=== PATIENT | male | born 1960 | race Caucasian/White ===

== ENCOUNTER 2017-02-08 14:10 | Emergency (ER) | payer MEDICARE, MEDICAID ==
[~2017-02-08] VITALS: Ht 188 cm; Wt 81.6 kg
[~2017-02-08 14:10] MED LIST: AUGMENTIN1 TA3 PO; DILANTIN 100MG100 MG PO; ULTRAM50 MG PO; VOLTAREN75 MG PO; ZITHROMAX Z PA250 MG PO
[2017-02-08] MEDS ORDERED: GABAPENTIN 400400 MG PO (14:25)
[2017-02-08] MEDS ORDERED: TRAMADOL 50MG T50 MG PO (14:26)
[2017-02-08 14:53] LABS: LYMPH % 30.7 % (10-50)
[2017-02-08 14:54] LABS: HEMOGLOBIN 14.1 g/dL (14.1-18.0)
--- NOTE | 2017-02-08 15:32 | Emergency Room Report ---
History of Present Illness Time Seen by MD Echavarria Presenting Problem in Triage Pt arrived:Walked Presenting Problem:PATIENT HAS BEEN THROWING UP SINCE YESTERDAY. STATES HE HAS BEEN OUT WORKING IN [place]. ABDOMEN SORE "FROM THROWING UP." Onset of symptoms date/time:02/0704/14/800 or onset unknown for: Treatment Prior to Arrival: [employer]OR Provided by: Sepsis Risk Assessment: Temp: 98.4 B/P: 128/76 MAP: 92 Pulse: 54 Resp: 20 Recent fever? N Clinical Suspician of Infection? N Mental Status: 1 - Regular (Normal Baseline) Sepsis Risk:Low Sepsis Risk Have you (or family members/close friends) recently traveled outside the [place]? N If Yes, where/when: Have you had exposure to infectious disease within the past month? TB? Other? Specify: Comment The patient complains of vomiting and abdominal pain since yesterday. He says he has been working and tobacco and thought it might be tobacco poisoning. However, he says that mostly he has been wearing gloves, not much contact with bare skin. He feels like his abdomen is sore from vomiting. One episode of diarrhea last night without blood. No fever. No chest pain. ALLERGIES Coded Allergies: No Known Drug Allergies (03/29/15) Home Medications Active Scripts Phenytoin Sodium (Dilantin 100MG CAP) 100 MG PO TID #90 CAP Prov: 08/01/14 Reported Medications GABAPENTIN (Gabapentin) 400 MG PO TID Tramadol Hcl (Tramadol 50MG) 50 MG PO TID History Medical History General CAD? No Angina: Yes ND: No Hypertension? No Hyperlipidemia? No CHF? No DVT? No PE? No COPD? No Asthma? No Anemia? No GERD? No Gastric ulcers? No GI Bleed? No Hernia? No Thyroid Problems? No Hypothyroidism? No CVA? Yes Seizures? Yes Diabetes? No Insulin Dependent: No Insulin Pump: No Home FSBS? No Renal Insuffiency? No End Stage Renal Disease? No UTI? No Stones? No BPH? No GB Disease: Yes Nephritic Syndrome? No Asplenia? No Hepatitis? No Sickle Cell Disease? No Arthritis? No Migraines? No Cataracts? No Glaucoma? No MRSA? No HIV? No TB? No Anxiety? No Depression? No Cancer? No More? No Immunization Hx DT/Tetanus 1-4 YRS Surgical Hx Previous Surgery?Y CHOLECYSTECTOMY Family History Family Hx Diabetes No CAD Yes Hypertension Yes Hyperlipidemia Yes Cancer No TB No Social History Smoking Hx Smoker: Current Every Day Smoker Tobacco: Yes Type Cigarettes Packs/day 1 1/2 - 2 Packs Alcohol Alcohol: No Review of Systems All Other Systems Reviewed and Negative Constitutional denies fever Cardiovascular denies chest pain Gastrointestinal abdominal pain, diarrhea, vomiting Physical Exam Vital Signs Vital Signs Date Time Temp Pulse Resp B/P Pulse O2 O2 Flow FiO2 Ox Delivery Rate 02/08 1624 98.5 60 20 128/77 100 02/08 1516 54 20 128/76 100 02/08 1419 98.4 63 20 126/75 100 General Appearance no apparent distress Eye Exam - bilateral eye normal exam, bilateral eye PERRL, bilateral eye EOMI Ear, Nose, Throat hearing grossly normal, normal ENT inspection Neck normal inspection, non-tender, supple, full range of motion Respiratory Status Yes: trachea midline, chest symmetrical, non tender chest. No: respiratory distress. Lung Sounds bilateral: normal breath sounds, lungs clear. Cardiovascular normal exam, regular rate/rhythm, no peripheral edema, no gallop, no JVD, no murmur, no rub, normal peripheral pulses Peripheral Pulses Pulses normal Yes Gastrointestinal normal bowel sounds, soft, no organomegaly, lower abdominal tenderness, mostly in the RIGHT lower quadrant Extremities non-tender, normal range of motion, normal inspection Neurologic alert, normal exam, oriented x 3 Mental status normal mood/affect Skin intact, normal color, warm/dry Medical Decision Making LABS/Meds/Orders Pt receiving controlled substance in ED? No Results/Orders Laboratory Tests 02/08/17 1442: Creatine Kinase 462 H, CK-MB (CK-2) Rel Index 1.5, CK and CKMB Interp 7.1 H, Troponin I < 0.02 02/08/17 1442: Sodium 139, Potassium 3.9, Chloride 105, Carbon Dioxide 30, BUN 15, Creatinine 1.0, Estimated Creat Clear 94, Estimated GFR (MDRD) 77, Glucose 100, Calcium 9.0 , Total Bilirubin 0.9, AST 40 H, ALT 26, Alkaline Phosphatase 113, Total Protein 7.7, Albumin 3.7, Globulin 4.0 H, Albumin/Globulin Ratio 0.9 L, Amylase 46, Lipase 116, WBC 9.9, RBC 4.72, Hgb 14.1, Hct 41.7 L, MCV 88.5, RDW 13.0, Plt Count 250, MPV 8.4, Gran % 63.2, Gran # 6.3, Lymphocytes % 30.7, Monocytes % 5.0, Eosinophils % 0.7, Basophils % 0.4, Lymphocytes # 3.0, Monocytes # 0.5, Eosinophils # 0.1, Basophils # 0.0, PUBS MCHC 33.9, MCH 29.9 Current Medication Orders Sig/Karissa Start time Last Medication Dose Route Stop Time Status Admin Iopamidol 75 ML ONCE ONE 02/08 1615 DC 02/08 IV 02/08 1616 1606 Sodium Chloride 10 ML PRN PRN 02/08 1615 DCD 02/08 IV 02/08 1735 1606 Sodium Chloride 1,000 ML .STK-MED ONE 02/08 1444 DC IV Sodium Chloride 10 ML PRN PRN 02/08 1430 DCD IV 02/09 1427 Sodium Chloride 1,000 ML .Q1H1M 02/08 1430 DC 02/08 IV 02/08 1530 1445 Sodium Chloride 10 ML PRN PRN 02/08 1430 DCD IV 02/09 1429 Orders Procedure Date/time Status DIET-NOTHING BY MOUTH 02/[address] ABD/PELVIS REQ 02/08 1536 Complete ELECTROCARDIOGRAM REQUEST 02/08 1437 Active CARDIAC ENZYMES 02/08 1437 Complete IV SALINE LOCK 02/08 1430 Active LIPASE 02/08 1430 Complete CBC WITH AUTO DIFF 02/08 1430 Complete CHEM 12 PROFILE 02/08 1430 Complete AMYLASE 02/08 1430 Complete 12 LEAD EKG-[facility] (INITIAL) 02/08 UNK Active CM/EKG CM/EKG Comments EKG interpreted by Zev Leblanc MD: Rhythm: sinus bradycardia Rate: 53 Hollins: normal Ectopy: none Conduction: normal ST Segment Changes: none T Wave Changes: none Q Waves: none No evidence of acute ischemia or injury Baseline artifact present, but I consider the EKG adequate for accurate interpretation. Departure Departure Disposition DC Home or Self Care(routine) Clinical Impression Primary Impression: Tobacco poisoning Qualifiers: Encounter type: initial encounter Injury intent: accidental or unintentional Qualified Code: T65.291A - Toxic effect of other tobacco and nicotine, accidental (unintentional), initial encounter Condition STABLE Patient Instructions DI for Vomiting -- Adult Additional Instructions Additional instructions for ABDOMINAL PAIN: Return immediately if worsening abdominal pain, vomiting, shortness of breath, fever, vomiting of blood or abdominal distention. Prescriptions Current Visit Scripts Ondansetron (Zofran 4MG Odt) 4 MG PO Q8HP PRN NAUSEA AND VOMITING #10 ODT ED Critical Care Critical Care No at 5500
--- NOTE | 2017-02-08 16:15 | RADIOLOGY REPORT PS360 ---
CT ABD PELVIS W/ CONTRAST CLINICAL INDICATION: ABDOMINAL PAIN ORDERING PHYSICIAN: Zev Leblanc MD PATIENT AGE: 56 years COMPARISON: None TECHNIQUE: Axial images obtained with sagittal and coronal reformats. PROCEDURE: Oral Contrast: None IV Contrast: 75 mL of Isovue-[id number]. FINDINGS: No acute finding in the lung bases. There are at least 2 isodense lesions of the liver the largest in the right hepatic lobe at 9 mm nonspecific too small to categorize. There has been prior cholecystectomy. No biliary dilatation. Spleen, adrenal glands, and pancreas are unremarkable. No hydronephrosis or ureteral calculi. Nonobstructing 3 mm stone is present in the upper pole the left kidney. No intestinal obstruction or free air. Unremarkable appendix. No evidence of diverticulitis. Central coarse prostate calcifications are noted. Mild distention noted of the urinary bladder. No evidence of aneurysm or adenopathy. No acute bony anomalies. IMPRESSION: No acute intra-abdominal or pelvic pathology apparent Nonacute findings as described above including nonspecific isodense lesions of the liver and nonobstructing 3 mm left renal stone
[2017-02-08] MEDS ORDERED: ZOFRAN ODT4 MG PO (16:19)
[2017-02-08 16:24] VITALS: BP 128/77
--- OUTSIDE RECORDS SUMMARY | 2017-02-09 20:28 | External Medical Summary Rpt | CCD ---
Author Author , DEO Organization DEO Address Unknown Phone Care Team Providers Care Form Worker Name Role Phone JUWAN PEDRAZA, Unavailable Unavailable RemiP.S.CMichael, JUWAN PEDRAZA M.D.P.S.CMichael LOU ALL, LOU ALL Unavailable Unavailable BUTROS ANETTE, BUTROS Unavailable Unavailable ANETTE BUTROS, REZKALLA, Unavailable Unavailable BUTROS, REZKALLA [facility], Unavailable Unavailable [facility] LYDIA CHELSY, LYDIA CHELSY Unavailable Unavailable [facility], Unavailable Unavailable [facility] Unavailable Unavailable [facility], [facility] DAHBAR ANASTACIO, DAHBAR Unavailable Unavailable ANASTACIO DAHBAR, MAZEN, Unavailable Unavailable DAHBAR, MAZEN ERNESTINA THA, ERNESTINA Unavailable Unavailable THA FINCHUM ELL, FINCHUM Unavailable Unavailable ELL LORI ENRIQUE, LORI Unavailable Unavailable ENRIQUE GILBERT FESTUS, GILBERT Unavailable Unavailable FESTUS PASTORA RHO, PASTORA Unavailable Unavailable RHO JR OTONIEL, JAMES Unavailable Unavailable B, JR FREDERICK WALLACE B [place] [facility]ILY[facility], Unavailable Unavailable HO AILYN [facility] Unavailable Unavailable INC, [facility] HERDER LUIZA, HERDER Unavailable Unavailable LUIZA [facility], Unavailable Unavailable [facility] ASHLEY III BARBIE, Unavailable Unavailable ASHLEY III BARBIE [facility] Un[facility] Un[facility], [facility] Unavailable Unavailable [facility] & Unavailable Unavailable [facility] [place] [facility] NANCY SHI MD Unavailable Unavailable PS, NANCY SHI MD PS CAROLIN DURAN Unavailable Unavailable WILLIS Larson MD, Unavailable Unavailable Veronica Larson MD [facility] Unavailable Unavailable SERVICES, [facility] Unavailable [facility] [place] KAUSHAL GRE, KAUSHAL GRE Unavailable Unavailable [facility] CASTRO [facility], CASTRO Unavailable Unavailable [facility], Unavailable [facility]available [facility] CHASE PUN, Unavailable Unavailable [facility] BHARTI CHR, BHARTI CHR Unavailable Unavailable [facility] Unavailable Unavailable [facility], [facility] Unavailable Unavailable [facility], [facility] Unavailable Unavailable [facility], [facility] Unavailable Unavailable [place], [facility] GASTON RAY, GASTON Unavailable Unavailable [facility] Unavailable Unavailable CENTER, [facility] GUMARO LUIZA, Unavailable Unavailable [facility] LUIZA JOHAN JUNG, JOHAN Unavailable Unavailable JUNG Purpose Continuity of Care Document - 06-23-2007 through 2016 Problems Code Diagnosis DOS Provider Status E860 DEHYDRATION 01-11-2016 [facility] N19 UNSPECIFIED 01-11-2016 [facility] KIDNEY N EMERGENCY FAILURE PHYS R0602 SHORTNESS 01-11-2016 [facility] OF BREATH RADIOLOGY R531 WEAKNESS 01-11-2016 [facility] [place] [facility] [id number] OTHER 01-11-2016 [facility] SPECIFIED N EMERGENCY INJURIES PHYS HEAD INITIAL ENCOUNTER [id number] PAIN IN 12-09-2015 [facility] [place] RIGHT [facility]EE RAD[facility] R569 UNSPECIFIED 03-21-2015 [facility] [id number] STRAIN 03-21-2015 [facility] MUSCLE FASC PHYSICIANS & TENDON GROUP NECK LEVL INIT ENC Z720 TOBACCO USE 03-21-2015 [facility] R042 HEMOPTYSIS 03-11-2015 [facility] 7295 PAIN IN 10-26-2014 [facility] [place] [facility] TISSUES OF LIMB 7224 DEGENERATIO 05-31-2014 [facility] CERVICAL [place] INTERVERTEB RAL DISC 56058 CORTICAL 08-28-2013 NANCY [place]cer [place] [address] UNSPECIFIED 08-28-2013 NANCY Mercer [place] [address] POSTERIOR 08-13-2013 NANCY Mercer SUBCAPSULAR [facility] POLAR PS SENILE CATARACT 16948 NUCLEAR 08-13-2013 NANCY Mercer SCLEROSIS [facility] [place] PS 305.00 305.00 05-22-2013 Dev ALCOHOL [facility] 305.1 305.1 05-22-2013 Dev TOBACCO USE [facility] 413.9 413.9 05-22-2013 Dev ANGINA [facility] PECTORIS [facility] NEC/NOS 780.39 780.39 05-22-2013 Dev OTHER [facility] [address] OTHER 12-31-2012 [facility] [place] 7211 CERVICAL 12-31-2012 [facility] WITH AND [facility] MYELOPATHY 93410 INTERVERT 12-31-2012 [facility] CERV DISC PAIN CARE D/O AND [facility] W/MYELOPATH Y CERV REGION 8470 NECK SPRAIN 12-31-2012 [facility] AND STRAIN PAIN CARE AND [facility] V5869 LONG-TERM 12-31-2012 [facility] (CURRENT) LABORATORIE USE OF S OF [place] OTHER MEDICATIONS V7109 OBSERVATION 12-31-2012 [facility] OF OTHER LABORATORIE SUSPECTED S OF [place] MENTAL CONDITION 7230 SPINAL 10-06-2012 [facility] STENOSIS IN PAIN CARE CERVICAL AND [facility] REGION 7234 BRACHIAL 10-06-2012 [facility] NEURITIS OR PAIN CARE AND [facility] RADICULITIS NOS 7238 OTHER 10-06-2012 [facility] SYNDROMES PAIN CARE AFFECTING AND [place] CERVICAL REGION 7804 DIZZINESS 10-06-2012 [facility] AND PAIN CARE GIDDINESS AND [facility] E9352 OTH 10-06-2012 [facility] OPIATES&REL [facility]ARE NARCOTICS AND [place] CAUS ADVRS EFF [place] USE 3384 CHRONIC 07-14-2012 [facility] SYNDROME AND [facility] 68881 SPINAL 07-14-2012 [facility] STENOSIS [facility] CARE UNSPEC AND [place] REGION OTH THAN CERVICAL 96569 UNSPECIFIED 05-06-2012 [facility] PAIN CARE ARTHROPATHY AND [facility] OTHER SPECIFIED SITES 7213 LUMBOSACRAL 05-06-2012 [facility] PAIN CARE SPONDYLOSIS AND [place] WITHOUT MYELOPATHY 03943 DEGEN 05-06-2012 [facility] LUMBAR/LUMB PAIN CARE OSACRAL AND [place] INTERVERTEB RAL DISC 22810 SPINAL STEN 05-06-2012 [facility] LUMB REG [facility]ARE W/O AND [facility] NEUROGENIC CLAUDICATIO N 27052 KYPHOSIS 05-06-2012 [facility] ACQUIRED [facility] POSTURAL AND [facility] 7840 HEADACHE 12-11-2011 [facility] 7812 ABNORMALITY 11-01-2011 [place] [facility] 8830 OPEN WOUND 10-08-2011 [facility] [place] WITHOUT [place] MENTION COMPLICATIO N 7231 CERVICALGIA 08-15-2011 [facility] 7291 UNSPECIFIED 08-15-2011 [facility]AL[facility] SERVICES AND MYOSITIS 7210 CERVICAL 04-17-2011 [facility] [place] SPONDYLOSIS RADIOLOGY WITHOUT MYELOPATHY 2722 MIXED 04-13-2011 DAHBMAIRA CHAVES HYPERLIPIDE CHANEL 64883 OSTEOARTHRO 04-13-2011 DA[facility] ANASTACIO S UNSPEC WHETHER GEN/LOC UNSPEC SITE 7242 LUMBAGO 12-14-2010 [facility] 31984 OPEN WOUND 12-14-2010 [facility] NOSE UNSPEC PRIMARY SITE [facility] [place] WITHOUT MENTION COMP 8730 OPEN WOUND 12-04-2010 [facility] [place] WITHOUT [place] MENTION COMPLICATIO N 96373 CONTUSION 12-04-2010 [facility] SHOULD[facility] N EMERGENCY REGION PHYS E9179 OTHER 12-04-2010 [facility] STRIKING N EMERGENCY AGAINST PHYS W/WO SUBSEQUENT FALL 4659 ACUTE URIS 06-07-2010 [facility] OF PRIMARY UNSPECIFIED CARE [place] SITE 27149 UNSPECIFIED 02-18-2010 [facility] , LOWER LEG 16550 PAIN IN 02-18-2010 [facility]Y LOWER LEG SERVICES 83407 CHEST PAIN 01-19-2010 [facility] UNSPECIFIED REGIONAL RADIOLOG 34193 OTHER CHEST 01-18-2010 [facility] PAIN REG[facility]AL EMERGENCY 4779 ALLERGIC 10-04-2009 [facility] UNSPECIFIED 40034 SUNBURN OF 10-04-2009 [facility] 3899 UNSPECIFIED 09-19-2007 [facility] 3674 PRESBYOPIA 09-09-2007 JR FREDERICK WALLACE B Allergies, Adverse Reactions, Alerts Type Allergy to substance Drug Allergy Adverse Reaction to Substance Substance Reaction Severity INGREDIENT: NO KNOWN Unknown Unknown - NO KNOWN DRUG ALLERGY No Known Allergies - Unknown Mild Nka Medications Na ND Rx Da Fi Fi Am Da Di Ph RX Ph St me C No te ll ll ou ys ag ar # ys at rm s nt no ma ic us Or Da si cy ia de te s n re d CE 00 08 09 30 30 00 CA Ac TI 53 -2 -2 .0 00 RR ti RI 61 5- 2- 00 01 IN ve ZI 04 20 20 49 GT NE 10 17 17 97 ON [address] L UG 10 MG TA BL ET CE 00 08 08 30 30 00 CA Ac TI 53 -0 -2 .0 00 RR ti RI 61 2- 5- 00 01 IN ve ZI 04 20 20 49 GT NE 10 17 17 58 ON [address] L UG 10 MG TA BL ET CE 00 06 07 30 30 00 CA Ac TI 53 -1 -0 .0 00 RR ti RI 61 3- 7- 00 01 IN ve ZI 04 20 20 48 GT NE 10 17 17 73 ON [address] L UG 10 MG TA BL ET CE 00 05 05 30 30 00 CA Ac TI 53 -0 -2 .0 00 RR ti RI 61 3- 6- 00 01 IN ve ZI 04 20 20 47 GT NE 10 17 17 27 ON [address] L UG 10 MG TA BL ET CE 00 03 04 30 30 00 CA Ac TI 53 -1 -1 .0 00 RR ti RI 61 8- 4- 00 01 IN ve ZI 04 20 20 45 GT NE 10 17 17 44 ON [address] L UG 10 MG TA BL ET CE 00 02 03 30 30 00 CA Ac TI 53 -1 -1 .0 00 RR ti RI 61 1- 0- 00 01 IN ve ZI 04 20 20 45 GT NE 10 17 17 44 ON [address] L UG 10 MG TA BL ET CE 00 01 02 30 30 00 CA Ac TI 53 -1 -1 .0 00 RR ti RI 61 7- 0- 00 01 IN ve ZI 04 20 20 45 GT NE 10 17 17 44 ON [address] L UG 10 MG TA BL ET PH 00 01 0 No EN 64 -2 YT 12 4- Lo OI 55 20 ng N 54 14 er 50 5 Ac MG ti /M ve L AL SO 00 01 0 No DI 40 -2 UM 97 4- Lo 98 20 ng CH 43 14 er LO 7 RI Ac DE ti ve 0. 9% SO LIZETH TI ON LO 51 01 04 3 30 30 CA 99 BU Ac RA 66 -1 -1 .0 RR 69 TR ti TA 00 1- 5- 00 IN 71 OS ve DI 52 20 20 GT NE 60 10 10 ON RE [address] AL UG LA MG TA BL ET LO 45 01 03 3 30 30 CA 99 BU Ac RA 80 -1 -1 .0 RR 69 TR ti TA 20 1- 6- 00 IN 71 OS ve DI 65 20 20 GT NE 08 10 10 ON RE [address] ARCE LA MG TA BL ET LO 45 01 02 01 30 30 CA 99 BU Ac RA 80 -1 -2 .0 RR 69 TR ti TA 20 1- 6- 00 IN 71 OS ve DI 65 20 20 GT NE 08 10 10 ON RE [address] ARCE LA MG TA BL ET LO 45 01 01 00 30 30 CA 99 BU Ac RA 80 -1 -2 .0 RR 69 TR ti TA 20 1- 8- 00 IN 71 OS ve DI 65 20 20 GT NE 08 10 10 ON RE [address] ARCE LA MG TA BL ET LO 45 09 12 03 30 30 CA 97 BU Ac RA 80 -0 -1 .0 RR 46 TR ti TA 20 8- 7- 00 IN 93 OS ve DI 65 20 20 GT NE 08 09 09 ON RE [address] ARCE LA MG TA BL ET LO 45 09 11 02 30 30 CA 97 BU Ac RA 80 -0 -1 .0 RR 46 TR ti TA 20 8- 9- 00 IN 93 OS ve DI 65 20 20 GT NE 08 09 09 ON RE [address] ARCE LA MG TA BL ET LO 60 09 10 01 30 30 CA 97 BU Ac RA 50 -0 -2 .0 RR 46 TR ti TA 50 8- 2- 00 IN 93 OS ve DI 14 20 20 GT NE 70 09 09 ON RE [address] ARCE LA MG TA BL ET LO 60 09 09 00 30 30 CA 97 BU Ac RA 50 -0 -2 .0 RR 46 TR ti TA 50 8- 4- 00 IN 93 OS ve DI 14 20 20 GT NE 70 09 09 ON RE [address] ARCE LA MG TA BL ET 00 04 08 03 30 30 CA 95 BU Ac 90 -1 -1 .0 RR 13 TR ti 45 5- 3- 00 IN 91 OS ve 82 20 20 GT 94 09 09 ON RE [address] CALDERON UG LA 00 04 07 02 30 30 CA 95 BU Ac 90 -1 -1 .0 RR 13 TR ti 45 5- 6- 00 IN 91 OS ve 82 20 20 GT 94 09 09 ON RE [address] ARCE LA 00 04 06 01 30 30 CA 95 BU Ac 90 -1 -1 .0 RR 13 TR ti 45 5- 8- 00 IN 91 OS ve 82 20 20 GT 94 09 09 ON RE [address] AL UG LA 00 04 05 00 30 30 CA 95 BU Ac 90 -1 -2 .0 RR 13 TR ti 45 5- 1- 00 IN 91 OS ve 82 20 20 GT 94 09 09 ON RE 6 AL UG LA 24 11 04 05 30 30 CA 92 BU Ac 38 -2 -2 .0 RR 76 TR ti 50 1- 3- 00 IN 44 OS ve 17 20 20 GT 57 08 09 ON RE 5 AL UG LA 24 11 03 04 30 30 CA 92 BU Ac 38 -2 -2 .0 RR 76 TR ti 50 1- 6- 00 IN 44 OS ve 17 20 20 GT 57 08 09 ON RE 5 AL UG LA 24 11 02 03 30 30 CA 92 BU Ac 38 -2 -2 .0 RR 76 TR ti 50 1- 6- 00 IN 44 OS ve 17 20 20 GT 57 08 09 ON RE 5 AL UG LA 24 11 01 02 30 30 CA 92 BU Ac 38 -2 -3 .0 RR 76 TR ti 50 1- 0- 00 IN 44 OS ve 17 20 20 GT 57 08 09 ON RE 5 AL UG LA 24 11 01 01 30 30 CA 92 BU Ac 38 -2 -0 .0 RR 76 TR ti 50 1- 1- 00 IN 44 OS ve 17 20 20 GT 57 08 09 ON RE 5 AL UG LA 24 11 12 00 30 30 CA 92 BU Ac 38 -2 -0 .0 RR 76 TR ti 50 1- 4- 00 IN 44 OS ve 17 20 20 GT 57 08 08 ON RE 5 AL LA LO 51 05 11 05 30 30 CA 89 No Ac RA 66 -2 -0 .0 RR 91 t ti TA 00 3- 7- 00 IN 73 Av ve DI 52 20 20 GT ai NE 60 08 08 ON la [address] king UG MG TA BL ET LO 51 05 10 04 30 30 CA 89 No Ac RA 66 -2 -0 .0 RR 91 t ti TA 00 3- 9- 00 IN 73 Av ve DI 52 20 20 GT ai NE 60 08 08 ON la [address] fernando COELLO MG TA BL ET LO 51 05 09 03 30 30 CA 89 No Ac RA 66 -2 -1 .0 RR 91 t ti TA 00 3- 1- 00 IN 73 Av ve DI 52 20 20 GT ai NE 60 08 08 ON la [address] e UG MG TA BL ET LO 51 05 08 02 30 30 CA 89 No Ac RA 66 -2 -1 .0 RR 91 t ti TA 00 3- 4- 00 IN 73 Av ve DI 52 20 20 GT ai NE 60 08 08 ON la [address] king UG MG TA BL ET LO 51 05 07 01 30 30 CA 89 No Ac RA 66 -2 -0 .0 RR 91 t ti TA 00 3- 3- 00 IN 73 Av ve DI 52 20 20 GT ai NE 60 08 08 ON la [address] king UG MG TA BL ET LO 51 05 06 00 30 30 CA 89 No Ac RA 66 -2 -0 .0 RR 91 t ti TA 00 3- 5- 00 IN 73 Av ve DI 52 20 20 GT ai NE 60 08 08 ON la [address] king UG MG TA BL ET LO 51 05 05 00 30 30 CA 89 No Ac RA 66 -0 -0 .0 RR 55 t ti TA 00 1- 8- 00 IN 71 Av ve DI 52 20 20 GT ai NE 60 08 08 ON la [address] king UG MG TA BL ET LO 51 12 04 03 30 30 CA 87 No Ac RA 66 -2 -1 .0 RR 50 t ti TA 00 0- 7- 00 IN 32 Av ve DI 52 20 20 GT ai NE 60 07 08 ON la [address] king UG MG TA BL ET LO 51 12 03 02 30 30 CA 87 No Ac RA 66 -2 -2 .0 RR 50 t ti TA 00 0- 6- 00 IN 32 Av ve DI 52 20 20 GT ai NE 60 07 08 ON la [address] king UG MG TA BL ET LO 51 12 03 01 30 30 CA 87 No Ac RA 66 -2 -2 .0 RR 50 t ti TA 00 0- 5- 00 IN 32 Av ve DI 52 20 20 GT ai NE 60 07 08 ON la [address] king UG MG TA BL ET Vital Signs 05-22-2013 01:46 Name Value Interpretat Reference Comment ion Range BP 63 mm[Hg] Diastolic BP Systolic 104 mm[Hg] Heart 90 /min Rate/Pulse O2% 100 % Respiratory 20 /min Rate 05-22-2013 00:21 Name Value Interpretat Reference Comment ion Range BP 77 mm[Hg] Diastolic BP Systolic 123 mm[Hg] Heart 98 /min Rate/Pulse O2% 93 % Respiratory 20 /min Rate Results Labs Lab Lab Date Result Refere Interp Status Commen Order Detail nces retati t Range on Ethanol Bld-mCnc (05-22-2013) Ethanol 118 0-99 complet 014 mg/dL ed Bld-mCn c COMPREHENSIVE METABOLIC PANEL (05-21-2013 23:46) Glucose 122 74-106 complet 014 mg/dL ed Bld-mCn 23:46 c BUN 10 7-18 complet Bld-mCn 014 mg/dL ed c 23:46 Creat 1.1 0.8-1.3 complet SerPl-m 014 mg/dL ed Cnc 23:46 GFR/BSA 70 Greater complet .pred 014 ML/MIN than ed SerPl 23:46 60 Schwart z-vRate Sodium 138 136-145 complet SerPl-s 014 mmoL/L ed Cnc 23:46 Potassi 3.4 3.5-5.1 complet um 014 mmoL/L ed SerPl-s 23:46 Cnc Chlorid 101 98-107 complet e 014 mmoL/L ed SerPl-s 23:46 Cnc CO2 27 21.0-32 complet SerPl-s 014 mmoL/L .0 ed Cnc 23:46 Calcium 8.4 8.5-10. complet 014 mg/dL 1 ed SerPl-m 23:46 Cnc Prot 7.7 6.4-8.2 complet SerPl-m 014 gm/dL ed Cnc 23:46 Albumin 3.6 3.4-5.0 complet 014 gm/dL ed SerPl-m 23:46 Cnc Globuli 4.1 1.3-3.2 complet n 014 gm/dL ed Ser-mCn 23:46 c Albumin 0.9 UNK 1.1-1.8 complet /Glob 014 ed SerPl-m 23:46 Rto Bilirub 0.4 0.2-1.0 complet 014 mg/dL ed SerPl-m 23:46 Cnc AST 11 U/L 15-37 complet SerPl-c 014 ed Cnc 23:46 ALT 01-23-2 22 U/L 12-78 complet SerPl-c 014 ed Cnc 23:46 ALP 05-21-2 137 U/L 50-136 complet SerPl-c 014 ed Cnc 23:46 CBC with AUTO DIFF (05-21-2013 23:46) WBC # 23-2 12.0 4.8-10. complet Bld 014 K/MM3 8 ed Auto 23:46 RBC # 05-21-2 5.27 4.6-6.2 complet Bld 014 M/mm3 ed Auto 23:46 Hgb 05-21-2 15.5 14.1-18 complet Bld-mCn 014 g/dL .0 ed c 23:46 Hct Fr 2 45.0 % 42.0-52 complet Bld 014 .0 ed 23:46 MCV RBC 85.5 fl 82.2-97 complet 014 .8 ed 23:46 MCH RBC 29.5 pg 27-31.2 complet Qn 014 ed Auto 23:46 MEAN 2 34.5 31.8-35 complet CORPUSC 014 g/dl .4 ed ULAR 23:46 HGB CONC RDW RBC 05-21-2 14.8 % 11.5-17 complet Auto 014 .5 ed 23:46 Platele 2 314 142-424 complet t Bld 014 K/mm3 ed Ql 23:46 Manual MEAN 2 7.8 fl 7.4-10. complet PLATELE 014 4 ed T 23:46 VOLUME Granulo 05-21-2 63.7 % 37.0-80 complet cytes 014 .0 ed Fr Bld 23:46 Auto LYMPH % 05-21-2 30.9 % 10-50 complet 014 ed 23:46 Monocyt 05-21-2 3.3 % 1.7-9.3 complet es Fr 014 ed Bld 23:46 Auto Eosinop 05-21-2 1.6 % 0.1-12. complet hil Fr 014 0 ed Bld 23:46 Auto Basophi 05-21-2 0.5 % 0.1-2.0 complet ls Fr 014 ed Bld 23:46 Auto Granulo 05-21-2 7.7 1.3-8.0 complet cytes # 014 K/mm3 ed Bld 23:46 Auto Lymphoc 05-21-2 3.7 0.7-4.5 complet ytes Fr 014 K/mm3 ed Bld 23:46 Auto Monocyt 05-21-2 0.4 0.1-1.0 complet es # 014 K/mm3 ed Bld 23:46 Auto Eosinop 05-21-2 0.2 0.0-0.4 complet hil # 014 K/mm3 ed Bld 23:46 Auto Basophi 05-21-2 0.1 0-0.2 complet ls # 014 K/MM3 ed Bld 23:46 Auto URINALYSIS/COMPLETE (05-21-2013 23:42) URINE YELLOW YELLOW complet COLOR 014 ed 23:42 URINE CLEAR CLEAR complet APPEARA 014 ed NCE 23:42 URINE NEGATIV NEG complet GLUCOSE 014 E ed - 23:42 DIPSTIC K URINE NEGATIV NEG complet BILIRUB 014 E ed IN - 23:42 DIPSTIC K URINE NEGATIV NEG complet KETONE 014 E mg/dL ed 23:42 URINE 2 1.010 1.005-1 complet SPECIFI 014 UNK .030 ed C 23:42 GRAVITY URINE NEGATIV NEG complet BLOOD 014 E ed 23:42 URINE 5.5 UNK 5.0-8.5 complet PH 014 ed 23:42 URINE NEGATIV NEG complet PROTEIN 014 E mg/dL ed - 23:42 DIPSTIC K URINE 05-21-2 0.2 NEG complet UROBILI 014 E.U./dL ed NOGEN - 23:42 DIPSTIC K URINE 2 NEGATIV NEG complet NITRATE 014 E ed - 23:42 DIPSTIC K URINE 05-21- NEGATIV NEG complet LEUK 014 E ed ESTERAS 23:42 E URINE OCC 0 complet RBC 014 rbc/hpf ed 23:42 URINE OCC O complet WBC 014 wbc/hpf ed 23:42 URINE OCC OCC complet SQUAMOU 014 #/hpf ed S CELLS 23:42 URINE TRACE O complet BACTERI 014 ed A 23:42 Procedures Procedure DOS Code Location Performer Comment RADIOLOGI 43275 [facility] PRASANNA HAY CHR C 6 RADIOLOGY [place]AMINATI [place] [address] [facility] [place] MARILIN HEAD/BRAI 6 RADIOLOGY RAY N W/O CONTRAST MATERIAL ECG 38023 [facility] ROUTINE 6 NGUYEN KYL ECG EMERGENCY W/LEAST PHYS 12 LDS I&R ONLY RAD[facility]OLOGI 51250 [facility] [place] BHART[facility] CHR C EXAM 6 RADIOLOGY KNEE COMPLETE 4/MORE VIEWS RADIOLOGI 23676 [facility] L[facility] ALL C EXAM 5 MEDICAL CHEST 2 IMAGING VIEWS ASS FRONTAL&L ATERAL RADEX 90486 [facility] [place] [facility] CHR FOOT 5 RADIOLOGY COMPLETE MINIMUM 3 VIEWS RADEX 06902 [facility] SPINE 5 [facility] CERVICAL [place] 2 OR 3 VIEWS CATARACT 81779 [facility] REMOVAL 4 LT EYE [facility]ION [facility] CATARACT 62511 [facility] REMOVAL 4 [facility]YE INSERTION [facility] DRUG 67012 [facility] SCREEN 3 QUANTITAT LABORATOR LABORATOR QUINN IES OF [place] IES OF [place] AMITRIPTY LINE DRUG 96384 [facility] SCREEN 3 QUANTITAT LABORATOR LABORATOR QUINN IES OF [place] IES OF [place] AMITRIPTY LINE MRI 10843 [facility] EDIE SPINAL 3 PAIN CARE FESTUS CANAL AND CERVICAL BLUE[place] W/O CONTRAST MATRL MRI 38746 [facility] EDIE SPINAL 3 PAIN CARE FESTUS CANAL AND LUMBAR [facility]UE[place] W/O CONTRAST MATERIAL MRI BRAIN 06806 [facility] ASHLEY BRAIN 2 PAIN CARE III BARBIE STEM W/O AND CONTRAST BLUE[facility] MATERIAL PHYSICAL 81920 PR[facility] PAIN [facility]AL GRE PERFORMAN 2 CARE & CE [facility] TEST/YVROSE HIG W/REPRT EA 15 MIN THERAPEUT 41564 [place] PAIN [facility] ACTVITY 2 CARE & DIRECT PT [facility] CONTACT HIG EACH [address] [place] [address] [place] PAIN KAUSHAL GRE 1/> AREAS 2 CARE & EACH 15 [place] MIN HIG NEUROMUSC REEDUCA SIMPLE 29449 [facility] REPAIR 2 [facility] SCALP/NEC [place] KODAK K/AX/GSAPER T/TRUNK 2.5CM/< NJX 76546 PHYSICIAN PHYSICIAN DX/THER 2 S S SBST SERVICES SERVICES EPIDURAL/ SUBRACH CERV/THOR ACIC FLUOR 53273 PHYSICIAN JOHAN NEEDLE/CA 2 S JUNG TH SERVICES SPINE/PAR ASPINAL DX/THER ADDON NONINVASI 80755 PHYSICIAN PHYSICIAN VE 2 S S EAR/PULSE SERVICES SERVICES OXIMETRY SINGLE DETER LOCM Q9966 PHYSICIAN PHYSICIAN 200-299 2 S S MG/ML SERVICES SERVICES IODINE CONCENTRA TION PER ML SURGICAL A4550 PHYSICIAN PHYSICIAN TRAYS 2 S S SERVICES SERVICES RADEX 80596 PHYSICIAN PHYSICIAN SPINE 1 2 S S VIEW SERVICES SERVICES SPECIFY LEVEL SPONTANEO 74817 PHYSICIAN IRIZARRY US 2 S FESTUS NYSTAGMUS SERVICES TEST OPTKINETI 75724 PHYSICIAN EDIE Brown NYSTAG 2 S FESTUS BIDIR/FOV SERVICES EAL/PERIP H STIM W/REC POSITIONA 40463 PHYSICIAN EDIE L 2 S FESTUS NYSTAGMUS SERVICES TEST SINUSOIDA 72084 PHYSICIAN EDIE L 2 S FESTUS VERTICAL SERVICES AXIS ROTATIONA L TESTING CALORIC 56205 PHYSICIAN IRIZARRY VESTIBULA 2 S FESTUS R TEST EA SERVICES IRRIGATIO N W/RECORD MRI 82155 [facility] [place] PASTORA SPINAL 1 RADIOLOGY RHO CANAL CERVICAL W/O CONTRAST MATRL SMPL 83604 [facility] REPAIR 1 [facility] SCALP/NEC [place] KODAK K/AX/GASPER T/TRUNK 2.6-7.5CM DSTRJ [address] [facility] [address] PVRT SURGERY SURGERY FACET JT CENTER CENTER NRV LMBR/SAC 1 LVL FLUOR 95386 JUWAN RUSSOARD NEEDLE/CA 1 MIOL PEDRAZA TH M.D.P.S.C M.D.P.S.C SPINE/PAR . . ASPINAL DX/THER ADDON MODERATE 89907 JUWAN GARCIAT SEDATJ 1 THA PEDRAZA SAME, M.D.P.S.C PHYS/QHP . 5/>YRS INIT 30 MIN DSTRJ 22628 [facility] NULYT [address] PVRT SURGERY SURGERY FACET JT CENTER CENTER NRV LMBR/SAC EA LVL MODERATE 75938 JUWAN DO SEDATJ 1 THA PEDRAZA JULIANN KhalilP.S.C PHYS/QHP . 5/>YRS INIT 30 MIN NJX 91965 [facility] STONE DX/THER [address] AGT PVRT SURGERY SURGERY FACET JT CENTER CENTER LMBR/SAC 1 LEVEL NJX 01835 [facility]ONE DX/THER [address] AGT PVRT SURGERY SURGERY FACET JT CENTER CENTER LMBR/SAC 2ND LEVEL NJX 38958 STONE STONE DX/THER [address] AGT PVRT SURGERY SURGERY FACET JT CENTER CENTER LMBR/SAC 3+ LEVEL RADIOLOGI 49732 [facility] C EXAM 0 REGIONAL LUIZA CHEST 2 RADIOLOG VIEWS FRONTAL&L ATERAL RADEX 03544 [facility] SPINE 0 [facility] LUMBOSACR [facility] AL 2/3 VIEWS DETERMINA 11372 OTONIEL FREDERICK, TION 8 JR, JR, REFRACTIV RAMIREZ B RAMIREZ B E [facility] OPH 78877 OTONIEL FREDERICK, MEDICAL 8 JR, JR, XM&EVAL RAMIREZ B RAMIREZ B COMPRE NEW PT 1/> VST Encounters Encounter Start End Date Code Location Performer Type Date OFFICE 97451 [facility] LORI OUTPATIEN 5 5 PHYSICIAN ENRIQUE T NEW 30 S [facility] 5 5 [facility] OUTPATI KODAK T Emergency MARCO ANTONIO Larson MD (ER) 4 23:46 4 01:47 [facility] [address] [facility] [place] [place] [facility] 3 3 PAIN CARE LUIAZ T VISIT AND 15 BLUEG MINUTES OFFICE 69328 [facility] BERRIENKan ALEXISLIYAH OUTPATIEN 3 3 PAIN CARE FESTUS T VISIT AND 15 BLUEG MINUTES OFFICE 11130 [facility] IRIZARRY OUTPATIEN 3 3 PAIN CARE FESTUS T VISIT AND 15 BLUEG MINUTES OFFICE 38134 [facility] IRIZARRY OUTPATIEN 3 3 PAIN CARE FESTUS T VISIT AND 25 BLUEG MINUTES OFFICE 84498 [facility] IRIZARRY OUTPATIEN 3 3 PAIN CARE FESTUS T VISIT AND 25 BLUEG MINUTES OFFICE 08533 [place] [facility] OUTPATIEN 3 3 CARE & T VISIT BLUEGRASS 25 HIG MINUTES [facility] - 2 2 T EMERGENCY 29434 [facility] 2 2 [facility] T VISIT MODERATE SEVERITY OFFICE 96310 [facility] OUTPATIEN 2 2 PEDRO PEDRO T VISIT 5 MINUTES [facility] - 1 1 T OFFICE 92975 [facility] OUTPATIEN 1 1 ADULT ANETTE T VISIT PRIMARY 25 CARE ABIOLA MINUTES [facility] - 1 1 [facility] EMERGENCY 64768 [facility] 1 1 [facility] VISIT LOW/MODER SEVERITY EMERGENCY 51725 [facility] 1 1 [facility] EM[facility] T VISIT PHYS MODERATE SEVERITY OFFICE 10060 JUWAN DO OUTPATIEN 1 1 THA PEDRAZA VISIT M.D.P.S.C 25 . MINUTES OFFICE 69393 JUWAN VALENTINO OUTPATIEN 1 1 Yoon PEDRAZA VISIT M.D.P.S.C 15 . MINUTES OFFICE 03684 [facility] OUTPATIEN 1 1 ADULT ANETTE T VISIT PRIMARY 15 CARE ABIOLA MINUTES [facility]OSP[facility] DEV - 0 0 [facility] [facility] 70582 POLY LARSON 0 0 EMERGENCY ENRIQUE DEPARTMEN SERVICES T VISIT MODERATE SEVERITY EMERGENCY 90101 DEV 0 0 [facility] DEPARTMEN INC T VISIT LIMITED/M INOR PROB OFFICE 21016 JUWAN AGUERO OUTPATIEN 0 0 PEDRAZAZEINAB T VISIT M.D.P.S.C 15 . MINUTES EMERGENCY 23137 [facility] 0 0 REGIONAL R PUN VISIT HIGH EMERGENCY SEVERITY& THREAT FUN OFFICE 05877 MEANS DAHBAR, OUTPATIEN 0 0 ADULT MAZEN T VISIT PRIMARY 15 CARE MINUTES CENTER OFFICE 25543 MEANS BUTROS, OUTPATIEN 0 0 ADULT REZKALLA T VISIT PRIMARY 25 CARE MINUTES [facility] - 0 0 [facility] OUTPATIEN [place] T OFFICE 19026 MEANS BUTROS, OUTPATIEN 9 9 ADULT REZKALLA T VISIT PRIMARY 15 CARE MINUTES CENTER OFFICE 33757 MEANS BUTROS, OUTPATIEN 9 9 ADULT REZKALLA T VISIT PRIMARY 15 CARE MINUTES CENTER OFFICE 87365 MEANS BUTROS, OUTPATIEN 9 9 ADULT REZKALLA T VISIT PRIMARY 15 CARE MINUTES CENTER OFFICE 67191 MEANS BUTROS, OUTPATIEN 8 8 ADULT REZKALLA T VISIT PRIMARY 15 CARE MINUTES CENTER OFFICE 56309 MEANS BUTROS, OUTPATIEN 8 8 ADULT REZKALLA T VISIT PRIMARY 15 CARE MINUTES CENTER
--- OUTSIDE RECORDS SUMMARY | 2017-02-09 20:28 | External Medical Summary Rpt | CCD ---
Author Author , DEO Organization DEO Address Unknown Phone Care Team Providers Care Alliance Manager Name Role Phone JUWAN EPDRAZA, Unavailable Unavailable RemiP.S.CMichael, JUWAN PEDRAZA M.D.P.S.CMichael LOU ALL, LOU ALL Unavailable Unavailable BUTROS ANETTE, BUTROS Unavailable Unavailable ANETTE BUTROS, REZKALLA, Unavailable Unavailable BUTROS, REZKALLA [facility], Unavailable Unavailable [facility] LYDIA CHELSY, LYDIA CHELSY Unavailable Unavailable [facility], Unavailable Unavailable [facility] Unavailable Unavailable [facility], [facility] DAHBAR ANASTACIO, DAHBAR Unavailable Unavailable ANASTACIO DAHBAR, MAZEN, Unavailable Unavailable DAHBAR, MAZEN ERNESTINA THA, ERNESTINA Unavailable Unavailable THA FINCHUM ELL, FINCHUM Unavailable Unavailable ELL LORI ENRIQUE, LORI Unavailable Unavailable ENRIQUE GILBERT FESTUS, GILBERT Unavailable Unavailable FESTUS PASTORA RHO, PASTORA Unavailable Unavailable RHO JR OTONIEL, JAMES Unavailable Unavailable B, JR FREDERICK WALLACE B [place] [facility], Unavailable Unavailable HO AILYN [facility] Unavailable Unavailable INC, [facility] HERDER LUIZA, HERDER Unavailable Unavailable LUIZA [facility], Unavailable Unavailable [facility] ASHLEY III BARBIE, Unavailable Unavailable ASHLEY III BARBIE [facility] Un[facility], [facility] Unavailable Unavailable AND [facility], [facility] & Unavailable Unavailable [facility] NANCY SHI MD Unavailable Unavailable PS, NANCY SHI MD PS CAROLIN DURAN Unavailable Unavailable WILLIS Larson MD, Unavailable Unavailable Veronica Larson MD [facility] Unavailable Unavailable SERVICES, [facility] ME[facility] ADULT PRIMARY Unavailable Unavailable [...] PUN BHARTI CHR, BHARTI CHR Unavailable Unavailable [facility] Unavailable Unavailable EMERGENCY PHYS, [facility] Unavailable [facility]available RADIOLOG, [facility] RADIOLOG [facility] Unavailable Unavailable EMERGENCY, [facility] EMERGENCY [facility] Unavailable Unavailable [place], [facility] GASTON RAY, GASTON Unavailable Unavailable [facility] Unavailable Unavailable CENTER[facility] GUMARO LUIZA, Unavailable Unavailable [facility] JOHAN JUNG, JOHAN Unavailable Unavailable JUNG Purpose Continuity of Care Document - 06-23-2007 through 2016 Problems Code Diagnosis DOS Provider Status E860 DEHYDRATION 01-11-2016 [facility] N19 UNSPECIFIED 01-11-2016 [facility] KIDNEY N EMERGENCY FAILURE PHYS R0602 SHORTNESS 01-11-2016 [facility] RADIOLOGY R531 WEAKNESS 01-11-2016 [facility] [place] [facility] F461GOD OTHER 01-11-2016 [facility] SPECIFIED N EMERGENCY INJURIES PHYS HEAD INITIAL ENCOUNTER R78760 PAIN IN 12-09-2015 [facility] [place] RIGHT KNEE RAD[facility]OLOG[facility] R569 UNSPECIFIED 03-21-2015 [facility] [id number] STRAIN 03-21-2015 [facility] MUSCLE FASC PHYSICIANS & TENDON GROUP NECK LEVL INIT ENC Z720 TOBACCO USE 03-21-2015 [facility] R042 HEMOPTYSIS 03-11-2015 [facility] 7295 PAIN IN 10-26-2014 [facility] [place] SOFT [facility] TISSUES OF LIMB 7224 DEGENERATIO 05-31-2014 [facility] CERVICAL [place] INTERVERTEB RAL DISC 98120 CORTICAL 08-28-2013 NANCY [facility] [place] [address] UNSPECIFIED 08-28-2013 NANCY [facility] [place] [address] POSTERIOR 08-13-2013 NANCY [facility] SUBCAPSULAR [facility] POLAR PS SENILE CATARACT 92243 NUCLEAR 08-13-2013 NANCY [facility] SCLEROSIS [facility] [place] PS 305.00 305.00 05-22-2013 Dev [facility] 305.1 305.1 05-22-2013 Dev TOBACCO USE [facility] 413.9 413.9 05-22-2013 Dev ANGINA [facility] PECTORIS [facility] NEC/NOS 780.39 780.39 05-22-2013 Dev [facility] 8[facility] OTHER 12-31-2012 [facility] [place] 7211 CERVICAL 12-31-2012 [facility] WITH AND [facility] MYELOPATHY 66957 INTERVERT 12-31-2012 [facility] CERV DISC [facility] CARE D/O AND [facility]UE[facility] W/MYELOPATH Y CERV REGION 8470 NECK SPRAIN 12-31-2012 [facility] AND STRAIN PAIN CARE AND [facility]UE[facility] V5869 LONG-TERM 12-31-2012 [facility] (CURRENT) [facility] USE OF S OF [place] OTHER MEDICATIONS V7109 OBSERVATION 12-31-2012 [facility] OF OTHER LABORATORIE SUSPECTED S OF [place] MENTAL CONDITION 7230 SPINAL 10-06-2012 [facility] STENOSIS IN PAIN CARE CERVICAL AND [facility]UE[facility] REGION 7234 BRACHIAL 10-06-2012 [facility] NEURITIS OR PAIN CARE AND [facility] RADICULITIS NOS 7238 OTHER 10-06-2012 [facility] SYNDROMES PAIN CARE AFFECTING AND BLUE[facility] CERVICAL REGION 7804 DIZZINESS 10-06-2012 [facility] AND PAIN CARE GIDDINESS AND BLUE[facility] E9352 OTH 10-06-2012 [facility] OPIATES&REL [facility]IN CARE NARCOTICS AND [facility] CAUS ADVRS EFF [place] USE 3384 CHRONIC 07-14-2012 [facility] PAIN [facility] SYNDROME AND [facility]UE[facility] 86129 SPINAL 07-14-2012 [facility] STENOSIS PAIN CARE UNSPEC AND [facility]UE[facility] REGION OTH THAN CERVICAL 79396 UNSPECIFIED 05-06-2012 [facility] PAIN CARE ARTHROPATHY AND BLUE[facility] OTHER SPECIFIED SITES 7213 LUMBOSACRAL 05-06-2012 [facility] PAIN CARE SPONDYLOSIS AND BLUE[facility] WITHOUT MYELOPATHY 18278 DEGEN 05-06-2012 [facility] LUMBAR/LUMB PAIN CARE OSACRAL AND [facility]UE[facility] INTERVERTEB RAL DISC 90955 SPINAL STEN 05-06-2012 [facility] LUMB REG PAIN CARE W/O AND [facility]UE[facility] NEUROGENIC CLAUDICATIO N 38182 KYPHOSIS 05-06-2012 [facility] ACQUIRED [facility] POSTURAL AND BLUE[facility] 7840 [...] 2722 MIXED 04-13-2011 DAHBMAIRA CHAVES HYPERLIPIDE CHANEL 39882 OSTEOARTHRO 04-13-2011 DAHBAR ANASTACIO S UNSPEC WHETHER GEN/LOC UNSPEC SITE 7242 LUMBAGO 12-14-2010 [facility] [place] 48047 OPEN WOUND 12-14-2010 [facility] NOSE UNSPEC PRIMARY SITE CARE ABI[place] WITHOUT MENTION COMP 8730 OPEN WOUND 12-04-2010 [facility] [place] WITHOUT [place] MENTION COMPLICATIO N 66763 CONTUSION 12-04-2010 [facility] SHOULDER N EMERGENCY REGION PHYS E9179 OTHER 12-04-2010 [facility] STRIKING N EMERGENCY AGAINST PHYS W/WO SUBSEQUENT FALL 4659 ACUTE URIS 06-07-2010 MEANS ADULT OF PRIMARY UNSPECIFIED CARE ABIOLA SITE 45116 UNSPECIFIED 02-18-2010 [facility] ARTHROPATHY INC , LOWER LEG 23309 PAIN IN 02-18-2010 [facility], EMERGENCY LOWER LEG SERVICES 60285 CHEST PAIN 01-19-2010 [facility] UNSPECIFIED REGIONAL RADIOLOG 14001 OTHER CHEST 01-18-2010 [facility] PAIN REGIONAL EMERGENCY 4779 ALLERGIC 10-04-2009 [facility] RHINITIS PRIMARY [facility]USE [facility]ARE CENTER UNSPECIFIED 19506 SUNBURN OF 10-04-2009 [facility] ADULT SECOND PRIMARY [...] Procedure DOS Code Location Performer Comment RADIOLOGI 42666 [facility] PRASANNA HAY CHR C 6 RADIOLOGY [place]AMINAT[place] [address] [facility] [place] MARILIN HEAD/BRAI 6 RADIOLOGY RAY N W/O CONTRAST MATERIAL ECG 75327 [facility] ROUTINE 6 NGUYEN KYL ECG EMERGENCY W/LEAST PHYS 12 LDS I&R ONLY RAD[facility]OLOGI 97235 [facility] [place] BHART[facility] CHR C EXAM 6 RADIOLOGY KNEE COMPLETE 4/MORE VIEWS RADIOLOGI 58684 [facility] L[facility] ALL C EXAM 5 MEDICAL CHEST 2 IMAGING VIEWS ASS FRONTAL&L ATERAL RADEX 66176 [facility] [place] BHARTI CHR FOOT 5 RADIOLOGY COMPLETE MINIMUM 3 VIEWS RADEX 92930 [facility] SPINE 5 [facility] CERVICAL [place] KOD[place] 2 OR 3 VIEWS CATARACT 12168 [facility] REMOVAL 4 LT EYE LT EYE INSERTION [facility] CATARACT 59125 [facility] REMOV[facility] 4 [facility] EYE [facility] EYE INSERTION [facility] DRUG 82627 [facility] SCREEN 3 QUANTITAT LABORATOR LABORATOR QUINN IES OF [place] IES OF [place] AMITRIPTY LINE DRUG 52015 [facility] SCREEN 3 QUANTITAT LABORATOR LABORATOR QUINN IES OF [place] IES OF [place] AMITRIPTY LINE MRI 33780 [facility] EDIE SPINAL 3 PAIN CARE FESTUS CANAL AND CERVICAL BLUE[place] W/O CONTRAST MATRL MRI 00850 [facility] SPINAL 3 PAIN CARE FESTUS CANAL AND LUMBAR [facility]UE[facility] W/O CONTRAST MATERIAL MRI BRAIN 93232 [facility] ASHLEY BRAIN 2 PAIN CARE III BARBIE STEM W/O AND CONTRAST BLUE[facility] MATERIAL PHYSICAL 40711 PRASANNA PAIN KAUSHAL GRE PERFORMAN 2 CARE & CE [facility] TEST/YRVOSE HIG W/REPRT EA 15 MIN THERAPEUT 75237 [place] PAIN KAUSHAL GRE ACTVITY 2 CARE & DIRECT PT [facility] CONTACT HIG [place]ACH [address] [place] [address] [place] PAIN KAUSHAL GRE 1/> AREAS 2 CARE & EACH 15 [facility] MIN HIG NEUROMUSC REEDUCA SIMPLE 93580 [facility] REPAIR 2 [facility] SCALP/NEC KOD[place] KODAK K/AX/GASPER T/TRUNK 2.5CM/< NJX 36964 PHYSICIAN PHYSICIAN DX/THER 2 S S SBST SERVICES SERVICES EPIDURAL/ SUBRACH CERV/THOR ACIC FLUOR 18317 PHYSICIAN JOHAN NEEDLE/CA 2 S JUNG TH SERVICES SPINE/PAR ASPINAL DX/THER ADDON NONINVASI 10433 PHYSICIAN PHYSICIAN VE 2 S S EAR/PULSE SERVICES SERVICES OXIMETRY SINGLE DETER LOCM Q9966 PHYSICIAN PHYSICIAN 200-299 2 S S MG/ML SERVICES SERVICES IODINE CONCENTRA TION PER ML SURGICAL A4550 PHYSICIAN PHYSICIAN TRAYS 2 S S SERVICES SERVICES RADEX 31231 PHYSICIAN PHYSICIAN SPINE 1 2 S S VIEW SERVICES SERVICES SPECIFY LEVEL SPONTANEO 48740 PHYSICIAN IRIZARRY US 2 S FESTUS NYSTAGMUS SERVICES TEST OPTKINETI 36714 PHYSICIAN EDIE Brown NYSTAG 2 S FESTUS BIDIR/FOV SERVICES EAL/PERIP H STIM W/REC POSITIONA 59965 PHYSICIAN EDIE L 2 S FESTUS NYSTAGMUS SERVICES TEST SINUSOIDA 59279 PHYSICIAN EDIE L 2 S FESTUS VERTICAL SERVICES AXIS ROTATIONA L TESTING CALORIC 69095 PHYSICIAN IRIZARRY VESTIBULA 2 S FESTUS R TEST EA SERVICES IRRIGATIO N W/RECORD MRI 11172 [facility] [place] PASTORA SPINAL 1 RADIOLOGY RHO CANAL CERVICAL W/O CONTRAST MATRL SMPL 99091 [facility] REPAIR 1 [facility] SCALP/NEC KODAK KODAK K/AX/GASPER T/TRUNK 2.6-7.5CM DSTRJ [address] [address] PVRT SURGERY SURGERY FACET JT CENTER CENTER NRV LMBR/SAC 1 LVL FLUOR 73078 JUWAN RUSSOARD NEEDLE/CA 1 MILO PEDRAZA TH M.D.P.S.C M.D.P.S.C SPINE/PAR . . ASPINAL DX/THER ADDON MODERATE 63696 JUWAN GARCIAT SEDATJ 1 THA PEDRAZA SAME, M.D.P.S.C PHYS/QHP . 5/>YRS INIT 30 MIN DSTRJ [address] [facility] [address] [address] PVRT SURGERY SURGERY FACET JT CENTER CENTER NRV LMBR/SAC EA LVL MODERATE 41309 JUWAN DO SEDATJ 1 THA PEDRAZA JULIANN KhalilP.S.C PHYS/QHP . 5/>YRS INIT 30 MIN NJX 25070 [facility] DX/THER [address] AGT PVRT SURGERY SURGERY FACET JT CENTER CENTER LMBR/SAC 1 LEVEL NJX 40197 [facility] DX/THER [address] AGT PVRT SURGERY SURGERY FACET JT CENTER CENTER LMBR/SAC 2ND LEVEL NJX 75830 [facility] DX/THER [address] AGT PVRT SURGERY SURGERY FACET JT CENTER CENTER LMBR/SAC 3+ LEVEL RADIOLOGI 14036 [facility] EXAM 0 REGIONAL LUIZA CHEST 2 RADIOLOG VIEWS FRONTAL&L ATERAL RADEX 76749 [facility] SPINE 0 [facility] LUMBOSACR [facility] AL 2/3 VIEWS DETERMINA 41506 OTONIEL FREDERICK, TION 8 JR, JR, REFRACTIV RAMIREZ B RAMIREZ B E [facility] OPH 69486 OTONIEL FREDERICK, MEDICAL 8 JR, JR, XM&EVAL RAMIREZ B RAMIREZ B COMPRE NEW PT 1/> VST Encounters Encounter Start End Date Code Location Performer Type Date OFFICE 90852 [facility] LORI OUTPATIEN 5 5 PHYSICIAN ENRIQUE T NEW 30 S [facility] - 5 5 [facility] OUTPATI [place] T Emergency MARCO ANTONIO Larson MD (ER) 4 23:46 4 01:47 [facility] OFFICE 46672 [facility] 3 3 PAIN CARE LUIZA T VISIT AND 15 BLUE[facility] MINUTES OFFICE 42665 [facility] OUTPATIEN 3 3 PAIN CARE EFSTUS T VISIT AND 15 BLUEG MINUTES OFFICE 74785 [facility] IRIZARRY OUTPATIEN 3 3 PAIN CARE FESTUS T VISIT AND 15 BLUEG MINUTES OFFICE 27692 [facility] IRIZARRY OUTPATIEN 3 3 PAIN CARE FESTUS T VISIT AND 25 BLUE[place] MINUTES OFFICE 56545 [facility] IRIZARRY OUTPATIEN 3 3 PAIN CARE FESTUS T VISIT AND 25 [place]UE[place] MINUTES OFFICE 01597 [place] [facility] K[place] [facility] OUTPATIEN 3 3 CARE & T VISIT [facility] 25 HIG MINUTES [facility] [place] - 2 2 [facility] T EMERGENCY 03787 [facility] 2 2 [facility] T VISIT MODERATE SEVERITY OFFICE 19461 CAROLIN COE OUTPATIEN 2 2 PEDRO PEDRO T VISIT 5 MINUTES [facility] [place] - 1 1 [facility] T OFFICE 79799 MEANS BUTROS OUTPATIEN 1 1 ADULT ANETTE T VISIT PRIMARY 25 CARE ABIOLA MINUTES [facility]OS[facility] - 1 1 [facility] EMERGENCY 86199 [place] 1 1 [facility] VISIT LOW/MODER SEVERITY EMERGENCY 11964 [facility] 1 1 [facility] T VISIT PHYS MODERATE SEVERITY OFFICE 21840 JUWAN DO OUTPATIEN 1 1 THA PEDRAZA VISIT [facility] 25 . MINUTES OFFICE 07566 JUWAN VALENTINO OUTPATIEN 1 1 Yoon PEDRAZA VISIT M.D.P.S.C 15 . MINUTES OFFICE 92502 MEANS BUTROS OUTPATIEN 1 1 ADULT ANETTE T VISIT PRIMARY 15 CARE [facility]A MINUTES [facility]OS[facility] 20244 POLY L[facility] 0 0 EMERGENCY ENRIQUE DEPARTMEN SERVICES T VISIT MODERATE SEVERITY EMERGENCY 08634 DEV 0 0 [facility] DEPARTMEN INC T VISIT LIMITED/M INOR PROB OFFICE 73558 JUWAN AGUERO OUTPATIEN 0 0 PEDRAZAZEINAB T VISIT M.D.P.S.C 15 . MINUTES EMERGENCY 22060 [facility] 0 REGIONAL R PUN VISIT HIGH EMERGENCY SEVERITY& THREAT FUN OFFICE 08245 MEANS DAHBAR, OUTPATIEN 0 0 ADULT MAZEN T VISIT PRIMARY 15 CARE MINUTES CENTER OFFICE 92137 MEANS BUTROS, OUTPATIEN 0 0 ADULT REZKALLA T VISIT PRIMARY 25 CARE MINUTES [facility] - 0 0 [facility] OUTPATIEN [place] T OFFICE 68337 MEANS BUTROS, OUTPATIEN 9 9 ADULT REZKALLA T VISIT PRIMARY 15 CARE MINUTES CENTER OFFICE 32638 MEANS BUTROS, OUTPATIEN 9 9 ADULT REZKALLA T VISIT PRIMARY 15 CARE MINUTES CENTER OFFICE 66121 MEANS BUTROS, OUTPATIEN 9 9 ADULT REZKALLA T VISIT PRIMARY 15 CARE MINUTES CENTER OFFICE 61458 MEANS BUTROS, OUTPATIEN 8 8 ADULT REZKALLA T VISIT PRIMARY 15 CARE MINUTES CENTER OFFICE 11317 MEANS BUTROS, OUTPATIEN 8 8 ADULT REZKALLA T VISIT PRIMARY 15 CARE MINUTES CENTER
--- OUTSIDE RECORDS SUMMARY | 2017-02-09 20:31 | External Medical Summary Rpt ---
Author Author DEO Chen, [employer] Organization [employer] Address Unknown Phone Unavailable
--- OUTSIDE RECORDS SUMMARY | 2017-02-09 20:31 | External Medical Summary Rpt | CCD ---
Demographics Preferred Language Czech Marital Status Unknown Denominational Affiliation Unknown Race Unknown Ethnic Group Unknown Author Author , DEO DESOUZA Address Unknown Phone Immunization No patient found.
--- OUTSIDE RECORDS SUMMARY | 2017-02-09 20:31 | External Medical Summary Rpt | CCD ---
Author Author , DEO Organization DEO Address Unknown Phone [email or web address] Care Team Providers Care Synthetic Department Supervisor Name Role Phone JUWAN PEDRAZA, Unavailable Unavailable RemiP.S.CMichael, JUWAN PEDRAZA M.D.P.S.CMichael LOU ALL, LOU ALL Unavailable Unavailable BUTROS ANETTE, BUTROS Unavailable Unavailable ANETTE BUTROS, REZKALLA, Unavailable Unavailable BUTROS, REZKALLA [facility], Unavailable Unavailable [facility] LYDIA CHELSY, LYDIA CHELSY Unavailable Unavailable [facility], Unavailable Unavailable [facility] Unavailable Unavailable [facility], [facility] DAHBAR ANASTACIO, DAHBAR Unavailable Unavailable ANASTACIO DAHBMAIRA, MAZEN, Unavailable Unavailable DAHBAR, MAZEN ERNESTINA THA, ERNESTINA Unavailable Unavailable THA RHODES, G T, RHODES, G Unavailable Unavailable T FINCHUM ELL, FINCHUM Unavailable Unavailable ELL LORI ENRIQUE, LORI Unavailable Unavailable ENRIQUE GILBERT FESTUS, GILBERT Unavailable Unavailable [facility]ST[facility] FREDERICK JR, WALLACE Unavailable Unavailable BOTONIEL JR, WALLACE B HAMILTON RON, Unavailable Unavailable [facility] Un[facility] Un[facility] INC, [facility] HERDER LUIZA, HERDER Unavailable Unavailable LUIZA [facility], Unavailable Unavailable [facility] [place] BABRI[facility], Unavailable Unavailable [place] [facility] Unavailable Unavailable [facility], [facility] Unavailable AND [facility], [facility] [place] [facility] & Unavailable Unavailable [facility] [place] [facility] NANCY SHI MD Unavailable Unavailable PS, NANCY SHI MD PS CAROLIN DURAN Unavailable Unavailable [facility] Unavailable Unavailable SERVICES, [facility] PRIMARY Unavailable Unavailable [...] PUN BHARTI CHR, BHARTI CHR Unavailable Unavailable [facility] Unavailable Unavailable EMERGENCY PHYS, [facility] Unavailable Unavailable RADIOLOG, [facility] Unavailable Unavailable EMERGENCY, [facility] EMERGENCY [facility] Unavailable Unavailable [place], [facility] [place] GASTON RAY, GASTON Unavailable Unavailable RAY GUMARO LUIZA, Unavailable Unavailable GUMARO LUIZA JOHAN JUNG, JOHAN Unavailable Unavailable JUNG Purpose Continuity of Care Document - 06-23-2007 through 2016 Problems Code Diagnosis DOS Provider Status E860 DEHYDRATION 01-11-2016 [facility] N19 UNSPECIFIED 01-11-2016 [facility] KIDNEY N EMERGENCY FAILURE PHYS R0602 SHORTNESS 01-11-2016 [facility] [place] [facility]ATH RAD[facility] R531 WEAKNESS 01-11-2016 [facility] [place] [facility] Z198EDC OTHER 01-11-2016 [facility] SPECIFIED N EMERGENCY INJURIES PHYS HEAD INITIAL ENCOUNTER H11943 PAIN IN 12-09-2015 [facility] [place] RIGHT KNEE RADIOLOGY R569 UNSPECIFIED 03-21-2015 [facility] O105RIM STRAIN 03-21-2015 [facility] MUSCLE FASC PHYSICIANS & TENDON GROUP NECK LEVL INIT ENC Z720 TOBACCO USE 03-21-2015 [facility] R042 HEMOPTYSIS 03-11-2015 [facility] 7295 PAIN IN 10-26-2014 [facility] [place] SOFT [facility] TISSUES OF LIMB 7224 DEGENERATIO 05-31-2014 [facility] CERVICAL [place] INTERVERTEB RAL DISC 83929 CORTICAL 08-28-2013 NANCY [place] [address] UNSPECIFIED 08-28-2013 NANCY [place] [address] POSTERIOR 08-13-2013 NANCY S SUBCAPSULAR [place] [place] POLAR PS SENILE CATARACT 53011 NUCLEAR 08-13-2013 [place] [address] OTHER 12-31-2012 [facility] CHRONIC LABORATORIE PAIN [place] OF [place] 7211 CERVICAL 12-31-2012 [place] [facility] WITH AND [facility] MYELOPATHY 98422 INTERVERT 12-31-2012 [place] CERV DISC [facility] D/O AND [facility] W/MYELOPATH Y CERV REGION 8470 NECK SPRAIN 12-31-2012 [place] AND STRAIN [facility] AND [facility] V5869 LONG-TERM 12-31-2012 [facility]CURRENT[facility] USE OF S OF [place] OTHER MEDICATIONS V7109 OBSERVATION 12-31-2012 [facility] OF OTHER LABORATORIE SUSPECTED S OF [place] MENTAL CONDITION 7230 SPINAL 10-06-2012 [place] STENOSIS IN PAIN CARE CERVICAL AND [facility] REGION 7234 BRACHIAL 10-06-2012 [facility] NEURITIS OR PAIN CARE AND [facility] RADICULITIS NOS 7238 OTHER 10-06-2012 [place] SYNDROMES PAIN CARE AFFECTING AND [facility] CERVICAL REGION 7804 DIZZINESS 10-06-2012 [place] AND [facility] GIDDINESS AND [facility] E9352 OTH 10-06-2012 [place] OPIATES&REL [facility] NARCOTICS AND [place] CAUS ADVRS EFF [place] USE 3384 CHRONIC 07-14-2012 [place] [facility]IN [facility] SYNDROME AND [facility] 21028 SPINAL 07-14-2012 [place] STENOSIS [facility]IN CARE UNSPEC AND [facility] REGION OTH THAN CERVICAL 68198 UNSPECIFIED 05-06-2012 [facility] ARTHROPATHY AND [facility] OTHER SPECIFIED SITES 7213 LUMBOSACRAL 05-06-2012 [facility] SPONDYLOSIS AND [facility] WITHOUT MYELOPATHY 37075 DEGEN 05-06-2012 [place] LUMBAR/LUMB [facility] OSACRAL AND [facility] INTERVERTEB RAL DISC 15478 SPINAL STEN 05-06-2012 [place] LUMB REG PAIN [facility]ARE W/O AND [place]UROGENIC [place]UDICATIO N 68042 KYPHOSIS 05-06-2012 [place] ACQUIRED [facility] POSTURAL AND [facility] 7840 HEADACHE 12-11-2011 [facility] 7812 ABNORMALITY 11-01-2011 [place] [facility] 8830 OPEN WOUND 10-08-2011 [facility] WITHOUT [place] MENTION COMPLICATIO N 7231 CERVICALGIA 08-15-2011 [facility] 7291 UNSPECIFIED 08-15-2011 [facility] MYALGIA SERVICES AND MYOSITIS 7210 CERVICAL 04-17-2011 [facility] [place] SPONDYLOSIS RADIOLOGY WITHOUT MYELOPATHY 2722 MIXED 04-13-2011 [facility] ANASTACIO HYPERLIPIDE CHANEL 85298 OSTEOARTHRO 04-13-2011 [facility] ANASTACIO S UNSPEC WHETHER GEN/LOC UNSPEC SITE 7242 LUMBAGO 12-14-2010 [facility] [place] 02274 OPEN WOUND 12-14-2010 [facility] NOSE UNSPEC PRIMARY SITE CARE [place] WITHOUT MENTION COMP 8730 OPEN WOUND 12-04-2010 [facility] [place] WITHOUT [place] MENTION COMPLICATIO N 74164 CONTUSION 12-04-2010 [facility] SHOULDER N EMERGENCY REGION PHYS E9179 OTHER 12-04-2010 [facility] STRIKING N EMERGENCY AGAINST PHYS W/WO SUBSEQUENT FALL 4659 ACUTE URIS 06-07-2010 [facility] OF PRIMARY UNSPECIFIED CARE [place] SITE 18397 UNSPECIFIED 02-18-2010 [facility] ARTHROPATHY INC , LOWER LEG 47650 PAIN IN 02-18-2010 [facility], EMERGENCY LOWER LEG SERVICES 37401 CHEST PAIN 01-19-[facility] UNSPECIFIED REG[facility]AL RADIOLOG 91358 OTHER CHEST 01-18-[facility] PAIN [facility] EMERGENCY 4779 ALLERGIC 10-04-2009 [facility] UNSPECIFIED 26279 SUNBURN OF 10-04-2009 [facility] 3899 UNSPECIFIED 09-19-2007 [facility] 3674 PRESBYOPIA 09-09-2007 JR OTONIEL, JAMES Lovett Medications Na ND Rx Da Fi Fi [...] RI 61 5- 2- 00 01 IN [facility] 04 20 20 49 GT NE 10 17 17 97 ON [address] L UG 10 MG TA BL ET CE 00 08 08 30 30 00 CA Ac TI 53 -0 -2 .0 00 RR ti RI 61 2- 5- 00 01 IN [facility] 04 20 20 49 GT NE 10 17 17 58 ON [address] L UG 10 MG TA BL ET CE 00 06 07 30 30 00 CA Ac TI 53 -1 -0 .0 00 RR ti RI 61 3- 7- 00 01 IN [facility] 04 20 20 48 GT NE 10 17 17 73 ON [address] L UG 10 MG TA BL ET CE 00 05 05 30 30 00 CA Ac TI 53 -0 -2 .0 00 RR ti RI 61 3- 6- 00 01 IN [facility] 04 20 20 47 GT NE 10 17 17 27 ON [address] L UG 10 MG TA BL ET CE 00 03 04 30 30 00 CA Ac TI 53 -1 -1 .0 00 RR ti RI 61 8- 4- 00 01 IN ve ZI 04 20 20 45 GT NE 10 17 17 44 ON [address] Alejandra UG 10 MG TA BL ET CE 00 02 03 30 30 00 CA Ac TI 53 -1 -1 .0 00 RR ti RI 61 1- 0- 00 01 IN ve ZI 04 20 20 45 GT NE 10 17 17 44 ON [address] Alejandra UG 10 MG TA BL ET CE 00 01 02 30 30 00 CA Ac TI 53 -1 -1 .0 00 RR ti RI 61 7- 0- 00 01 IN ve ZI 04 20 20 45 GT NE 10 17 17 44 ON [address] Roberts UG 10 MG TA BL ET LO 51 01 04 3 30 30 CA 99 BU Ac RA 66 -1 -1 .0 RR 69 TR ti TA 00 1- 5- 00 IN 71 OS ve DI 52 20 20 GT NE 60 10 10 ON RE [address] ARCE LA MG TA [...] 10 ON RE [address] AL UG LA MG TA BL ET LO 45 09 12 03 30 30 CA 97 BU Ac RA 80 -0 -1 .0 RR 46 TR ti TA 20 8- 7- 00 IN 93 OS ve DI 65 20 20 GT NE 08 09 09 ON RE [address] CALDERON UG LA MG TA BL ET LO 45 09 11 02 30 30 CA 97 BU Ac RA 80 -0 -1 .0 RR 46 TR ti TA 20 8- 9- 00 IN 93 OS ve DI 65 20 20 GT NE 08 09 09 ON RE [address] CALDERON UG LA MG TA BL ET LO 60 [...] 09 ON RE [address] CLAUDE ROOT MG TA BL ET 00 04 08 [...] ZK DR CALDERON UG LA 00 04 06 01 30 30 CA 95 BU Ac 90 -1 -1 .0 RR 13 TR ti 45 5- 8- 00 IN 91 OS ve 82 20 20 GT 94 09 09 ON RE [address] CALDERON UG LA 00 04 05 00 30 30 CA 95 BU Ac 90 -1 -2 .0 RR 13 TR ti 45 5- 1- 00 IN 91 OS ve 82 20 20 GT 94 09 09 ON RE [address] CALDERON UG LA 24 11 04 05 30 30 CA 92 BU Ac 38 -2 -2 .0 RR 76 TR ti 50 1- 3- 00 IN 44 OS ve 17 20 20 GT 57 08 09 ON RE [address] CALDERON UG LA 24 11 03 04 30 30 CA 92 BU Ac 38 -2 -2 .0 RR 76 TR ti 50 1- 6- 00 IN 44 OS ve 17 20 20 GT 57 08 09 ON RE [address] CALDERON UG LA 24 11 02 03 30 30 CA 92 BU Ac 38 -2 -2 .0 RR 76 TR ti 50 1- 6- 00 IN 44 OS ve 17 20 20 GT 57 08 09 ON RE [address] CALDERON UG LA 24 11 01 02 30 30 CA 92 BU Ac 38 -2 -3 .0 RR 76 TR ti 50 1- 0- 00 IN 44 OS ve 17 20 20 GT 57 08 09 ON RE [address] CALDERON UG LA 24 11 01 01 30 30 CA 92 BU Ac 38 -2 -0 .0 RR 76 TR ti 50 1- 1- 00 IN 44 OS ve 17 20 20 GT 57 08 09 ON RE 5 ZK AL UG LA 24 11 12 00 30 30 CA 92 BU Ac 38 -2 -0 .0 RR 76 TR ti 50 1- 4- 00 IN 44 OS ve 17 20 20 GT 57 08 08 ON RE [address] CALDERON UG LA LO 51 05 11 05 30 [...] ON la [address] fernando UG MG TA BL ET LO 51 12 03 01 30 30 CA 87 No Ac RA 66 -2 -2 .0 RR 50 t ti TA 00 0- 5- 00 IN 32 Av ve DI 52 20 20 GT ai NE 60 07 08 ON la [address] king UG MG TA BL ET Procedures Procedure [place] [address] [facility] [place] HEAD/BRAI 6 RADIOLOGY RAY N W/O CONTRAST MATERIAL RADIOLOGI 62335 [facility] BHART[facility] CHR C 6 RADIOLOGY EXAMINATI ON CHEST SINGLE VIEW FRONTAL ECG [address] [facility] ROUTINE 6 NGUYEN KYL ECG EMERGENCY W/LEAST PHYS 12 LDS I&R ONLY RADIOLOGI 66165 [facility] C EXAM 6 RADIOLOGY KNEE COMPLETE 4/MORE VIEWS RADIOLOGI 35657 [place] [facility] C EXAM 5 MEDICAL CHEST 2 IMAGING VIEWS ASS FRONTAL&L ATERAL RADEX 93327 [facility] BHARTI CHR FOOT 5 RADIOLOGY COMPLETE MINIMUM 3 VIEWS RADEX 96467 [facility] SPINE 5 [facility] CERVICAL [place] 2 OR 3 VIEWS CATARACT 60979 [facility] REMOVAL 4 LTH [facility]YE [facility] CATARACT 82502 [facility] REMOVAL 4 LT EYE LT EYE INSERTION [facility] DRUG 14745 [facility] SCREEN 3 QUANTITAT LABORATOR LABORATOR QUINN IES OF [place] IES OF [place] AMITRIPTY LINE DRUG 84069 [facility] SCREEN 3 QUANTITAT LABORATOR LABORATOR QUINN IES OF [place] IES OF [place] AMITRIPTY LINE MRI 26216 [facility] SP[facility]AL 3 PAIN CARE FESTUS CANAL AND LUMBAR BLUEG W/O CONTRAST MATERIAL MRI 63473 [facility] IRIZARR[facility] SPINAL 3 PAIN CARE FESTUS CANAL AND CERVICAL BLUEG W/O CONTRAST MATRL MRI BRAIN 26717 [facility] BRAIN 2 PAIN CARE III BARBIE STEM W/[place] [address] [place] [facility] KA[place]AL GRE 1/> AREAS 2 CARE & EACH 15 [facility] MIN HIG NEUROMUSC REEDUCA PHYSICAL 23428 [place] [facility] [place] GRE PERFORMAN 2 CARE & CE [facility] TEST/YVROSE HIG W/REPRT EA 15 MIN THERAPEUT 19978 [place] [facility] [place] GRE ACTVITY 2 CARE & DIRECT PT [facility] CONTACT HIG EACH 15 MIN SIMPLE 93337 [facility] REPAIR 2 [facility] SCALP/NEC [place] KODAK K/AX/GASPER T/TRUNK 2.5CM/< RADEX 60650 PHYSICIAN PHYSICIAN SPINE 1 2 S S VIEW SERVICES SERVICES SPECIFY LEVEL SURGICAL A4550 PHYSICIAN PHYSICIAN TRAYS 2 S S SERVICES SERVICES NONINVASI 94425 PHYSICIAN PHYSICIAN VE 2 S S EAR/PULSE SERVICES SERVICES OXIMETRY [place]ER NJX 73606 PHYSICIAN PHYSICIAN DX/THER 2 S S SBST SERVICES SERVICES EPIDURAL/ SUBRACH CERV/THOR ACIC FLUOR 46623 PHYSICIAN JOHAN NEEDLE/CA 2 S JUNG TH SERVICES SPINE/PAR ASPINAL DX/THER ADDON LOCM Q9966 PHYSICIAN PHYSICIAN 200-299 2 S S MG/ML SERVICES SERVICES IODINE CONCENTRA TION PER ML POSITIONA 93232 PHYSICIAN EDIE L 2 S FESTUS NYSTAGMUS SERVICES TEST SINUSOIDA 60396 PHYSICIAN EDIE L 2 S [facility]STUS VERTICAL SERVICES AXIS ROTATIONA L TESTING SPONTANEO 22247 PHYSICIAN IRIZARRY US 2 S FESTUS NYSTAGMUS SERVICES TEST OPTKINETI 80252 PHYSICIAN EDIE Brown NYSTAG 2 S FESTUS BIDIR/FOV SERVICES EAL/PERIP H STIM W/REC CALORIC 97188 PHYSICIAN IRIZARRY VESTIBULA 2 S FESTUS R TEST EA SERVICES IRRIGATIO N W/RECORD MRI 09537 [facility] SPINAL 1 [facility] CANAL [place] CERVICAL W/O CONTRAST MATRL SMPL 27529 [facility] REPAIR 1 NGUYEN AILYN SCALP/NEC EMERGENCY K/AX/GASPER PHYS T/TRUNK 2.6-7.5CM DSTRJ 71423 JUWAN NAVARRORETT NULYT 1 TAH PEDRAZA PVRT M[facility] FACET JT . NRV LMBR/SAC EA LVL DSTRJ 07899 [facility] ERNESTINA NULYT 1 THA PEDRAZA PVRT M[facility] FACET JT . NRV LMBR/SAC 1 LVL MODERATE 64940 [facility] ERNESTINA SEDATJ 1 THA PEDRAZA SAME [facility] PHYS/QHP . 5/>YRS INIT 30 MIN FLUOR 26131 ECHEVERRIANOEL ECHEVERRIA NEEDLE/CA 1 MILO PEDRAZA M.D[facility] M.D.P[facility] SPINE/PAR . . ASPINAL DX/[place] NJX 77889 [facility] ERNESTINA DX/THER 1 THA PEDRAZA AGT PVRT M.D.[facility] FACET JT . LMBR/SAC 3+ LEVEL NJX 02327 [facility] ERNESTINA DX/THER 1 THA PEDRAZA AGT PVRT M.D.[facility] FACET JT . LMBR/SAC 1 LEVEL NJX 59097 [facility] ERNESTINA DX/THER 1 THA PEDRAZA AGT PVRT M.D.[facility] FACET JT . LMBR/SAC 2ND LEVEL MODERATE 43786 [facility] ERNESTINA SEDATJ 1 THA PEDRAZA SAME M[facility] PHYS/QHP . 5/>YRS INIT [address] [facility] G[facility] C EXAM 0 REGIONAL LUIZA CHEST 2 RADIOLOG VIEWS FRONTAL&L ATERAL RADEX 15994 [facility] [place] Yariel RHODES SPINE 0 RADIOLOGY T LUMBOSACR AL 2/3 VIEWS DETERMINA 16756 OTONIEL FREDERICK, TIXIN 8 JR, JR, REFRACTIV RAMIREZ B RAMIREZ B E STATE OPH 78146 OTONIEL OTONIEL, MEDICAL 8 JR, JR, XM&EVAL RAMIREZ B RAMIREZ B JANAEE NEW PT 1/> VST Encounters Encounter Start End Date Code Location Performer Type Date OFFICE 27540 [facility] LORI OUTPATIEN 5 5 PHYSICIAN ENRIQUE T NEW 30 S GROUP MINUTES [facility] - 5 5 [facility] OUTPATIEN [place] T OFFICE 19385 [facility] OUTPATIEN 3 3 PAIN CARE LUIZA T VISIT AND 15 BLUE[facility] MINUTES OFFICE 91714 [facility] OUTPATIEN 3 3 PAIN CARE FESTUS T VISIT AND 15 [facility] MINUTES OFFICE 17792 [facility] 3 3 PAIN CARE FESTUS T VISIT AND 15 BLUEG MINUTES OFFICE 63037 [facility] OUTPATIEN 3 3 PAIN CARE FESTUS T VISIT AND 25 [place]UE[place] MINUTES OFFICE 38913 [place] [facility] OUTPATIEN 3 3 PAIN CARE FESTUS T VISIT AND 25 [place]UE[place] MINUTES OFFICE 37836 [place] [facility] [place] OUTPATIEN 3 3 CARE & T VISIT [facility] 25 HIG MINUTES EMERGENCY 04539 [facility] 2 2 [facility] [place] T VISIT MODERATE SEVERITY [facility] - 2 2 [facility] [place] T OFFICE 24475 [facility] OUTPATIEN 2 2 PEDRO PEDRO T VISIT 5 MINUTES [facility] - 1 1 [facility] [place] [facility] OFF[facility] 63273 [facility] OUTPATIEN 1 1 ADULT ANETTE T VISIT PRIMARY 25 CARE ABIOLA MINUTES EMERGENCY 68380 [facility] LOW/MODER SEVERITY EMERGENCY 12750 [facility] 1 1 NGUYEN AILYN [facility] EMERGENCY T VISIT PHYS MODERATE SEVERITY [facility] - 1 1 MARIA CANDELARIO T OFFICE 70736 JUWAN DO OUTPATIEN 1 1 THA PEDRAZA VISIT [facility] 25 . MINUTES OFFICE 32739 JUWAN PHELPSU OUTPATIEN 1 1 Yoon PEDRAZA VISIT [facility] 15 . MINUTES OFFICE 75157 [facility] OUTPATIEN 1 1 ADULT ANETTE T VISIT PRIMARY 15 CARE [place] MINUTES EMERGENCY 61299 DEV 0 0 [facility] DEPARTMEN INC T VISIT [facility] DEV - 0 0 [facility] OUTPATIEN INC T EMERGENCY 44973 POLY SANDOVAL 0 0 EMERGENCY [facility] DEPARTMEN SERVICES T VISIT MODERATE SEVERITY OFFICE 17633 [facility] PEREZPERRY OUTPATIEN 0 0 ZEINAB PEDRAZA VISIT [facility] 15 . MINUTES EMERGENCY 07424 [facility] DEPT 0 0 REGIONAL R PUN VISIT HIGH EMERGENCY SEVERITY& THREAT FUN OFFICE 14208 MEANS DAHBAR, OUTPATIEN 0 0 ADULT MAZEN T VISIT PRIMARY 15 CARE MINUTES [facility] - 0 0 MARIA CANDELARIO T OFFICE 52164 [facility], OUTPATIEN 0 0 ADULT REZKALLA T VISIT PRIMARY 25 CARE MINUTES CENTER OFFICE 96279 [facility], OUTPATIEN 9 9 ADULT REZKALLA T VISIT PRIMARY 15 CARE MINUTES CENTER OFFICE 44327 MEANS BUTROS, OUTPATIEN 9 9 ADULT REZKALLA T VISIT PRIMARY 15 CARE MINUTES CENTER OFFICE 00794 [facility], OUTPATIEN 9 9 ADULT REZKALLA T VISIT PRIMARY 15 CARE MINUTES CENTER OFFICE 55623 [facility]ANS PABLITO WALSH 8 8 ADULT KODINgocYOLANDABRAYAN T VISIT PRIMARY 15 CARE [facility] CENTER OFFICE 28216 MEANS PABLITO WALSH 8 8 ADULT ALEJANDRO T VISIT PRIMARY 15 CARE [facility] CENTER
--- OUTSIDE RECORDS SUMMARY | 2017-02-09 20:31 | External Medical Summary Rpt | CCD ---
Demographics Preferred Language Lithuanian Marital Status Unknown Synagogue Affiliation Unknown Race Unknown Ethnic Group Unknown Author Author , DEO DESOUZA Address Unknown Phone Immunization No patient found.
--- OUTSIDE RECORDS SUMMARY | 2017-02-09 20:31 | External Medical Summary Rpt | CCD ---
Author Author , DEO Organization DEO Address Unknown Phone [email or web address] Care Team Providers Care Data Coder Operator Name Role Phone JUWAN PEDRAZA, Unavailable Unavailable RemiP.S.CMichael, JUWAN PEDRAZA M.D.P.S.CMichael LOU ALL, LOU ALL Unavailable Unavailable BUTROS ANETTE, BUTROS Unavailable Unavailable ANETTE BUTROS, REZKALLA, Unavailable Unavailable BUTROS, REZKALLA NICHOLAS DRUG, Unavailable Unavailable NICHOLAS DRUG LYDIA CHELSY, LYDIA CHELSY Unavailable Unavailable [facility], Unavailable Unavailable [facility] Unavailable [facility]available [facility] DAHBAR ANASTACIO, DAHBAR Unavailable Unavailable ANASTACIO [...] INC HERDER LUIZA, HERDER Unavailable Unavailable LUIZA [facility], Unavailable Unavailable [facility] [place] BARBI[place], Unavailable Unavailable [place] [facility] Unavailable Unavailable [facility], [facility] Unavailable Unavailable [facility], [facility] & Unavailable Unavailable [facility] [place] [facility] NANCY SHI MD Unavailable Unavailable PS, NANCY SHI MD PS CAROLIN DURAN Unavailable Unavailable [facility] Unavailable Unavailable SERVICES, [facility] ME[facility] ADULT PRIMARY Unavailable Unavailable [...] PUN BHARTI CHR, BHARTI CHR Unavailable Unavailable [facility] Unavailable Unavailable EMERGENCY PHYS, [facility]ENC[facility] Unavailable Unavailable RADIOLOG, [facility] RADIOLOG [facility] Unavailable Unavailable EMERGENCY, [facility] EMERGENCY [facility] Unavailable Unavailable [place], [facility] [place] GASTON RAY, GASTON Unavailable Unavailable RAY GUMARO LUIZA, Unavailable Unavailable GUMARO LUIZA JOHAN JUNG, JOHAN Unavailable Unavailable JUNG Purpose Continuity of Care Document - 06-23-2007 through 2016 Problems Code Diagnosis DOS Provider Status E860 DEHYDRATION 01-11-2016 [facility] N19 UNSPECIFIED 01-11-2016 [facility] KIDNEY N EMERGENCY FAILURE PHYS R0602 SHORTNESS 01-11-2016 [facility] R531 WEAKNESS 01-11-2016 [facility] [place] [facility] [id number] OTHER 01-11-2016 [facility] SPECIFIED N EMERGENCY INJURIES PHYS HEAD INITIAL ENCOUNTER H06731 PAIN IN 12-09-2015 [facility] [place] RIGHT KNEE RADIOLOGY R569 UNSPECIFIED 03-21-2015 [facility] [id number] STRAIN 03-21-2015 [facility] MUSCLE FASC PHYSICIANS & TENDON GROUP NECK LEVL INIT ENC Z720 TOBACCO USE 03-21-2015 [facility] R042 HEMOPTYSIS 03-11-2015 [facility] 7295 PAIN IN 10-26-2014 [facility] [place] SOFT RADI[facility] TISSUES OF LIMB 7224 DEGENERATIO 05-31-2014 [facility] CERVICAL [place] INTERVERTEB RAL DISC 85541 CORTICAL 08-28-2013 NANCY [place] [address] UNSPECIFIED 08-28-2013 NANCY [place] [address] POSTERIOR 08-13-2013 NANCY S SUBCAPSULAR [place] POLAR PS SENILE CATARACT 23666 NUCLEAR 08-13-2013 [place] [address] OTHER 12-31-2012 [facility] CHRONIC LABORATORIE PAIN S OF [place] 7211 CERVICAL 12-31-2012 [place] SPONDYLOSIS [facility] WITH AND [facility] MYELOPATHY 64575 INTERVERT 12-31-2012 [place] CERV DISC [facility] D/O AND [facility] W/MYELOPATH Y CERV REGION 8470 NECK SPRAIN 12-31-2012 [place] AND STRAIN [facility] AND [facility] V5869 LONG-TERM 12-31-2012 [facility]CURRENT[facility] USE OF S OF [place] OTHER MEDICATIONS V7109 OBSERVATION 12-31-2012 [facility] OF OTHER LABORATORIE SUSPECTED S OF [place] MENTAL CONDITION 7230 SPINAL 10-06-2012 [place] STENOSIS IN PAIN CARE CERVICAL AND [place] REGION 7234 BRACHIAL 10-06-2012 [facility] NEURITIS OR PAIN CARE AND [place] RADICULITIS NOS 7238 OTHER 10-06-2012 [place] SYNDROMES [facility]IN [facility]ARE AFFECTING AND [place] CERVICAL REGION 7804 DIZZINESS 10-06-2012 [place] AND [facility] GIDDINESS AND [facility] E9352 OTH 10-06-2012 [place] OPIATES&REL [facility]ARE NARCOTICS AND [place] CAUS ADVRS EFF [place] USE 3384 CHRONIC 07-14-2012 [place] [facility] SYNDROME AND [facility] 80077 SPINAL 07-14-2012 [place] STENOSIS PAIN CARE UNSPEC AND [place]UE[place] REGION OTH THAN CERVICAL 66437 UNSPECIFIED 05-06-2012 [facility] ARTHROPATHY AND [facility] OTHER SPECIFIED SITES 7213 LUMBOSACRAL 05-06-2012 [facility] SPONDYLOSIS AND [facility] WITHOUT MYELOPATHY 90111 DEGEN 05-06-2012 [place] LUMBAR/LUMB PAIN [facility]ARE OSACRAL AND [place] INTERVERTEB RAL DISC 70740 SPINAL STEN 05-06-2012 [place] LUMB REG PAIN [facility]ARE W/O AND [place] NEUROGENIC CLAUDICATIO N 53862 KYPHOSIS 05-06-2012 [place] ACQUIRED [facility] POSTURAL AND [facility] 7840 HEADACHE 12-11-2011 [facility] AND [facility] 7812 ABNORMALITY 11-01-2011 [place] PAIN OF GAIT [facility]ARE & [facility] 8830 OPEN WOUND 10-08-2011 [facility] FINGER [place] WITHOUT [place] MENTION COMPLICATIO N 7231 CERVICALGIA 08-15-2011 [facility] 7291 UNSPECIFIED 08-15-2011 [facility] MYALGIA SERVICES AND MYOSITIS 7210 CERVICAL 04-17-2011 [facility] [place] SPONDYLOSIS RADIOLOGY WITHOUT MYELOPATHY 2722 MIXED 04-13-2011 DA[facility] ANASTACIO HYPERLIPIDE CHANEL 23496 OSTEOARTHRO 04-13-2011 [facility] ANASTACIO S UNSPEC WHETHER GEN/LOC UNSPEC SITE 7242 LUMBAGO 12-14-2010 [facility] [place] 72124 OPEN WOUND 12-14-2010 [facility] NOSE UNSPEC PRIMARY SITE CARE [place] WITHOUT MENTION COMP 8730 OPEN WOUND 12-04-2010 [facility] [place] WITHOUT [place] MENTION COMPLICATIO N 49476 CONTUSION 12-04-2010 [facility] OF SHOULDER N EMERGENCY REGION PHYS E9179 OTHER 12-04-2010 [facility] STRIKING N EMERGENCY AGAINST PHYS W/WO SUBSEQUENT FALL 4659 ACUTE URIS 06-07-2010 [facility] ADULT OF PRIMARY UNSPECIFIED CARE [place] SITE 33293 UNSPECIFIED 02-18-2010 [facility] ARTHROPATHY INC , LOWER LEG 77953 PAIN IN 02-18-2010 [facility] EMERGENCY LOWER LEG SERVICES 77130 CHEST PAIN 01-19-[facility] UNSPECIFIED REGIONAL RADIOLOG 38191 OTHER CHEST 01-18-[facility] PAIN REGIONAL EMERGENCY 4779 ALLERGIC 10-04-2009 [facility] RHINITIS [facility] UNSPECIFIED 20897 [place] OF 10-04-2009 [facility] SECOND PRIMARY [...] RI 61 5- 2- 00 01 IN [facility] 04 20 20 49 GT NE 10 17 17 [address] ON [address] L UG 10 MG TA BL ET CE 00 08 08 30 30 00 CA Ac TI 53 -0 -2 .0 00 RR ti RI 61 2- 5- 00 01 IN [facility] 04 20 20 49 GT NE 10 17 17 58 ON [address] L UG 10 MG TA BL ET CE 00 06 07 30 30 00 CA Ac TI 53 -1 -0 .0 00 RR ti RI 61 3- 7- 00 01 IN [facility] 04 20 20 48 GT NE 10 17 17 73 ON [address] L UG 10 MG TA BL ET CE 00 05 05 30 30 00 CA Ac TI 53 -0 -2 .0 00 RR ti RI 61 3- 6- 00 01 IN [facility] 04 20 20 47 GT NE 10 [...] Procedure [place] [address] [facility] [place] HEAD/BRAI 6 RADIOLOGY RAY N W/O CONTRAST MATERIAL RADIOLOGI 84856 [facility] BHART[facility] CHR C 6 RADIOLOGY EXAMINATI ON CHEST SINGLE VIEW FRONTAL ECG 58263 [facility] ROUTINE 6 NGUYEN KYL ECG EMERGENCY W/LEAST PHYS 12 LDS I&R ONLY RADIOLOGI 18216 [facility] C EXAM 6 RADIOLOGY KNEE COMPLETE 4/MORE VIEWS RADIOLOGI 30667 [place] [facility] C EXAM 5 MEDICAL CHEST 2 IMAGING VIEWS ASS FRONTAL&L ATERAL RADEX 25604 [facility] BHARTI CHR FOOT 5 RADIOLOGY COMPLETE MINIMUM 3 VIEWS RADEX 00501 [facility] SPINE 5 [facility] CERVICAL [place] 2 OR 3 VIEWS CATARACT 66934 [facility] REMOVAL 4 LTH EYE LT EYE INSERTION [facility] CATARACT 12290 [facility] REMOVAL 4 LT EYE LT EYE INSERTION [facility] DRUG 20871 [facility] SCREEN 3 QUANTITAT LABORATOR LABORATOR QUINN IES OF [place] IES OF CA AMITRIPTY LINE DRUG 70563 [facility] SCREEN 3 QUANTITAT LABORATOR LABORATOR QUINN IES OF [place] IES OF [place] AMITRIPTY LINE MRI 74128 [facility] IRIZARRY SPINAL 3 PAIN CARE FESTUS CANAL AND LUMBAR BLUE[place] W/O CONTRAST MATERIAL MRI 37352 [facility] IRIZARRY SPINAL 3 PAIN CARE FESTUS CANAL AND CERVICAL BLUE[place] W/O CONTRAST MATRL MRI BRAIN 68295 [facility] ASHLEY BRAIN 2 PAIN CARE III BARBI[place] STEM W/[place] [address] [place] PAIN [place]AL GRE 1/> AREAS 2 CARE & EACH 15 [facility] MIN HIG NEUROMUSC REEDUCA PHYSICAL 47453 [place] PAIN [place] GRE PERFORMAN 2 CARE & CE [facility] TEST/YVROSE HIG W/REPRT EA 15 MIN THERAPEUT 74525 [place] PAIN [place] GRE ACTVITY 2 CARE & DIRECT PT [facility] CONTACT HIG EACH 15 MIN SIMPLE 41400 [facility] REPAIR 2 [facility] SCALP/NEC [place] K/AX/GASPER T/TRUNK 2.5CM/< RADEX 46180 PHYSICIAN PHYSICIAN SPINE 1 2 S S VIEW SERVICES SERVICES SPECIFY LEVEL SURGICAL A4550 PHYSICIAN PHYSICIAN TRAYS 2 S S SERVICES SERVICES NONINVASI 03585 PHYSICIAN PHYSICIAN VE 2 S S EAR/PULSE SERVICES SERVICES OXIMETRY [place]INGLE [place]ER NJX 89693 PHYSICIAN PHYSICIAN DX/THER 2 S S SBST SERVICES SERVICES EPIDURAL/ SUBRACH CERV/THOR ACIC FLUOR 99036 PHYSICIAN JOHAN NEEDLE/CA 2 S JUNG TH SERVICES SPINE/PAR ASPINAL DX/THER ADDON LOCM Q9966 PHYSICIAN PHYSICIAN 200-299 2 S S MG/ML SERVICES SERVICES IODINE CONCENTRA TION PER ML POSITIONA 75386 PHYSICIAN EDIE L 2 S FESTUS NYSTAGMUS SERVICES TEST SINUSOIDA 04236 PHYSICIAN EDIE L 2 S FESTUS VERTICAL SERVICES AXIS ROTATIONA L TESTING SPONTANEO 77213 PHYSICIAN IRIZARRY US 2 S FESTUS NYSTAGMUS SERVICES TEST OPTKINETI 95658 PHYSICIAN EDIE Brown NYSTAG 2 S FESTUS BIDIR/FOV SERVICES EAL/PERIP H STIM W/REC CALORIC 31640 PHYSICIAN IRIZARRY VESTIBULA 2 S FESTUS R TEST EA SERVICES IRRIGATIO N W/RECORD MRI 35524 [facility] SPINAL 1 [facility] CANAL [place] CERVICAL W/O CONTRAST MATRL SMPL 24670 [facility] REPAIR 1 NGUYEN AILYN SCALP/NEC EMERGENCY K/AX/GASPER PHYS T/TRUNK 2.6-7.5CM DSTRJ 90610 JUWAN NAVARRORETT NULYT 1 THA PEDRAZA PVRT M.D.P.S.C FACET JT . NRV LMBR/SAC EA LVL DSTRJ 86343 [facility] ERNESTINA NULYT 1 THA PEDRAZA PVRT M.D.P.S.C FACET JT . NRV LMBR/SAC 1 LVL MODERATE 60732 [facility] ERNESTINA SEDATJ 1 THA PEDRAZA SAME M.D.P.S.C PHYS/QHP . 5/>YRS INIT 30 MIN FLUOR 02145 ECHEVERRIANOEL ECHEVERRIA NEEDLE/CA 1 MILO PEDRAZA M.D.P.S.C M.D.P.S.C SPINE/PAR . . ASPINAL DX/[place] NJX 22183 [facility] ERNESTINA DX/THER 1 THA PEDRAZA AGT PVRT M.D.P.S.C FACET JT . LMBR/SAC 3+ LEVEL NJX 16793 [facility] ERNESTINA DX/THER 1 THA PEDRAZA AGT PVRT M.D.P.S.C FACET JT . LMBR/SAC 1 LEVEL NJX 18449 [facility] ERNESTINA DX/THER 1 THA PEDRAZA AGT PVRT M.D.P.S.C FACET JT . LMBR/SAC 2ND LEVEL MODERATE 44876 [facility]HE[facility] ERNESTINA SEDATJ 1 THA PEDRAZA SAME M.D.P.S.C PHYS/QHP . 5/>YRS INIT [address] [facility] GUM[facility] C EXAM 0 REGIONAL LUIZA CHEST 2 RADIOLOG VIEWS FRONTAL&L ATERAL RADEX 70990 [facility] [place] Yariel RHODES SPINE 0 RADIOLOGY T LUMBOSACR AL 2/3 VIEWS DETERMINA 55402 OTONIEL FREDERICK, TIXIN 8 JR, JR, REFRACTIV RAMIREZ B RAMIREZ B E STATE OPH 61556 OTONIEL OTONIEL, MEDICAL 8 JR, JR, XM&EVAL RAMIREZ B RAMIREZ B JANAEE NEW PT 1/> VST Encounters Encounter Start End Date Code Location Performer Type Date OFFICE 29028 [facility] LORI OUTPATIEN 5 5 PHYSICIAN ENRIQUE T NEW 30 S GROUP MINUTES [facility]OSPITAL [facility] - 5 5 [place] OUTPATIEN [place] T OFFICE 72432 KENT[facility] HERDER OUTPATIEN 3 3 PAIN CARE LUIZA T VISIT AND 15 BLUEG MINUTES OFFICE 82840 [facility] OUTPATIEN 3 3 PAIN CARE FESTUS T VISIT AND 15 [facility]UE[facility] MINUTES OFFICE 07297 [facility] OUT[facility] 3 3 PAIN CARE FESTUS T VISIT AND 15 BLUE[place] MINUTES OFFICE 67043 [facility] OUTPATIEN 3 3 PAIN CARE FESTUS T VISIT AND 25 [place]UE[place] MINUTES OFFICE 48086 [place] [facility] OUTPATIEN 3 3 PAIN CARE FESTUS T VISIT AND 25 [place]UE[place] MINUTES OFFICE 08863 [place] [facility] OUTPATIEN 3 3 CARE & T VISIT [facility] 25 HIG MINUTES EMERGENCY 71567 [facility] 2 2 [facility] [place] T VISIT MODERATE SEVERITY [facility]OSPITAL [facility] - 2 2 [facility] [place] T OFFICE 12246 [facility] COE OUTPATIEN 2 2 PEDRO PEDRO T VISIT 5 MINUTES HOSPITAL [facility] - 1 1 [facility] [place] T OFF[facility] 52069 [facility] BUTROS OUTPATIEN 1 1 ADULT ANETTE T VISIT PRIMARY 25 CARE ABIOLA MINUTES EMERGENCY 17485 [facility] 1 1 [facility] T VISIT LOW/MODER SEVERITY EMERGENCY 04320 [facility] 1 1 NGUYEN AILYN [facility] EMERGENCY T VISIT PHYS MODERATE SEVERITY HOSPITAL [facility] - 1 1 MARIA CANDELARIO T OFFICE 76793 JUWAN DO OUTPATIEN 1 1 THA PEDRAZA VISIT M.D.P.S.C 25 . MINUTES OFFICE 98028 JUWAN PHELPSU OUTPATIEN 1 1 Yoon PEDRAZA VISIT M.D.P.S.C 15 . MINUTES OFFICE 36492 [facility] BUTROS OUTPATIEN 1 1 ADULT ANETTE T VISIT PRIMARY 15 CARE ABIOLA MINUTES EMERGENCY 79511 DEV 0 0 [facility] DEPARTMEN INC T VISIT [facility] DEV - 0 0 [facility] OUTPATIEN INC T EMERGENCY 42641 POLY SANDOVAL 0 0 EMERGENCY [facility] DEPARTMEN SERVICES T VISIT MODERATE SEVERITY OFFICE 17325 [facility] PEREZPERRY OUTPATIEN 0 0 ZEINAB PEDRAZA VISIT M.D.P.S.C 15 . MINUTES EMERGENCY 43910 [facility] DEPT 0 0 REGIONAL R PUN VISIT HIGH EMERGENCY SEVERITY& THREAT FUN OFFICE 74948 MEANS DAHBAR, OUTPATIEN 0 0 ADULT MAZEN T VISIT PRIMARY 15 CARE MINUTES [facility] - 0 0 MARIA CANDELARIO T OFFICE 09062 MEANS BUTROS, OUTPATIEN 0 0 ADULT REZKALLA T VISIT PRIMARY 25 CARE MINUTES CENTER OFFICE 29365 [facility]ANS BUTROS, OUTPATIEN 9 9 ADULT REZKALLA T VISIT PRIMARY 15 CARE MINUTES CENTER OFFICE 44111 MEANS BUTROS, OUTPATIEN 9 9 ADULT REZKALLA T VISIT PRIMARY 15 CARE MINUTES CENTER OFFICE 43324 MEANS BUTROS, OUTPATIEN 9 9 ADULT REZKALLA T VISIT PRIMARY 15 CARE MINUTES CENTER OFFICE 23382 [facility]ANS PABLITO WALSH 8 8 ADULT KODINgocYOLANDABRAYAN T VISIT PRIMARY 15 CARE [facility] CENTER OFFICE 55246 [facility]ANS PABLITO WALSH 8 8 ADULT ALEJANDRO T VISIT PRIMARY 15 CARE [facility] CENTER
== END 2017-02-08 16:25 | disposition home or self-care (01) ==
LOC: ER 14:10
PROVIDERS: Emergency Medicine
DX: T65.291A Toxic effect of other tobacco and nicotine, accidental (unintentional), initial encounter (principal); R56.9 Unspecified convulsions; F17.210 Nicotine dependence, cigarettes, uncomplicated
CPT/HCPCS: Q9967

== ENCOUNTER 2017-02-19 21:10 | Emergency (ER) | payer MEDICARE, MEDICAID ==
[~2017-02-19] VITALS: Ht 188 cm; Wt 81.6 kg
[~2017-02-19 21:10] MED LIST changes: +GABAPENTIN 400400 MG PO; +TRAMADOL 50MG T50 MG PO; +ZOFRAN ODT4 MG PO
--- OUTSIDE RECORDS SUMMARY | 2017-02-19 21:20 | External Medical Summary Rpt | CCD ---
Demographics Preferred Language Upper Sorbian Marital Status Unknown Evangelical Affiliation Unknown Race Unknown Ethnic Group Unknown Author Author , DEO DESOUZA Address Unknown Phone [email or web address] Care Team Providers Care Bsa Officer Name Role Phone NICHOLAS DRUG, Unavailable Unavailable NICHOLAS DRUG Purpose Continuity of Care Document - 07-12-2009 through 2016 Medications Na ND Rx Da Fi Fi Am Da Di Ph RX Ph St me C No te ll ll ou ys ag ar # ys at rm s nt no ma ic us Or Da si cy ia de te s n re d LO 51 01 04 3 30 30 [...]
--- OUTSIDE RECORDS SUMMARY | 2017-02-19 21:20 | External Medical Summary Rpt | CCD ---
Demographics Preferred Language Vietnamese Marital Status Unknown Jainism Affiliation Unknown Race Unknown Ethnic Group Unknown Author Author , DEO DESOUZA Address Unknown Phone [email or web address] Care Team Providers Care Gold Miner Name Role Phone NICHOLAS DRUG, Unavailable Unavailable [...]
--- OUTSIDE RECORDS SUMMARY | 2017-02-19 21:20 | External Medical Summary Rpt | CCD ---
Author Author , DEO DESOUZA Address Unknown Phone Care Team Providers Care Auto Washer Name Role Phone NICHOLAS DRUG, Unavailable Unavailable NICHOLAS DRUG Veronica Larson MD, Unavailable Unavailable Veronica Larson MD Purpose Continuity of Care Document - 07-12-2009 through 2016 Problems Code Diagnosis DOS Provider Status 305.00 305.00 05-22-2013 [place] ALCOHOL [facility] ABUSE-[facility] C 305.1 305.1 05-22-2013 [place] TOBACCO USE [facility] DISORDER [facility] 413.9 413.9 05-22-2013 [place] ANGINA [facility] PECTORIS [facility] NEC/NOS 780.39 780.39 05-22-2013 [place] OTHER [facility] CONVULSIONS [facility] F10.929 ALCOHOL USE, UNSPECIFIED WITH INTOXICATIO N, UNSPECIFIED J02.0 STREPTOCOCC AL PHARYNGITIS J40 BRONCHITIS, NOT SPECIFIED ACUTE OR CHRONIC M54.2 CERVICALGIA R13.10 DYSPHAGIA, UNSPECIFIED R56.9 UNSPECIFIED CONVULSIONS 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 complet ed 017 0 ed blood 14:42 eosinop hils/10 0 leukocy t Blood = 6.3 1.3-8.0 complet granulo 017 K/mm3 ed cytes 14:42 automat ed count (numb Granulo = 63.2 37.0-80 complet cyte 017 % .0 ed percent 14:42 age Blood = 41.7 42.0-52 complet hematoc 017 % .0 ed rit 14:42 (volume fractio n) Blood = 14.1 14.1-18 complet hemoglo 017 g/dL .0 ed bin 14:42 measure ment (mass/v olum Absolut = 3.0 0.7-4.5 complet e 017 K/mm3 ed lymphoc 14:42 yte count Lymphoc = 30.7 10-50 complet yte 017 % ed count, 14:42 blood, automat ed Mean = 29.9 27-31.2 complet corpusc 017 pg ed ular 14:42 hemoglo bin (M[facility]) determ Automat = 33.9 31.8-35 complet ed 017 g/dl .4 ed erythro 14:42 cyte mean corpusc ular h Automat = 88.5 82.2-97 complet ed 017 fl .8 ed erythro 14:42 cyte mean corpusc ular v Absolut = 0.5 0.1-1.0 complet e 017 K/mm3 ed monocyt 14:42 e count Hart % = 5.0 % 1.7-9.3 complet 017 ed 14:42 Automat = 8.4 7.4-10. complet ed 017 fl 4 ed blood 14:42 platele t mean volume selwyn Blood = 250 142-424 complet platele 017 K/mm3 ed t count 14:42 Red = 4.72 4.6-6.2 complet blood 017 M/mm3 ed cell 14:42 count Automat = 13.0 11.5-17 complet ed 017 % .5 ed erythro 14:42 cyte distrib ution width Blood = 9.9 4.8-10. complet leukocy 017 K/MM3 8 ed kalina 14:42 count (number /volume ) Amylase ser/plas (02-08-2017 14:42) Amylase = 46 25-115 complet 017 U/L ed ser/juventino 14:42 s Comprehensive metabolic panel (02-08-2017 14:42) Serum = 0.9 1.1-1.8 complet or 017 ed plasma 14:42 albumin /globul in mass ra Serum = 3.7 3.4-5.0 complet or 017 gm/dL ed plasma 14:42 albumin measure ment (mas Serum = 113 46-116 complet or 017 U/L ed plasma 14:42 alkalin e phospha tase selwyn Serum = 0.9 0.2-1.0 complet or 017 mg/dL ed plasma 14:42 total bilirub in measure m Serum = 15 7-18 complet or 017 mg/dL ed plasma 14:42 urea nitroge n measure men Serum = 9.0 8.5-10. complet or 017 mg/dL 1 ed plasma 14:42 calcium measure ment (mas Serum = 105 98-107 complet or 017 mmoL/L ed plasma 14:42 chlorid e measure ment (mo Carbon = 30 21.0-32 complet dioxide 017 mmoL/L .0 ed 14:42 measure ment Serum = 1.0 0.70-1. complet or 017 mg/dL 30 ed plasma 14:42 creatin ine measure ment ( Estimat = 94 50-200 complet ion of 017 ML/MIN ed creatin 14:42 ine renal clearan ce Estimat = 77 >60 complet ed 017 ML/MIN ed glomeru 14:42 lar filtrat ion rate (GF Comment: REFERENCE RANGE: >60 ML/MIN/1.73 SQUARE METERS Comment: If this patient is -Lebanese, then multiply the Comment: result by 1.210. Serum = 4.0 1.3-3.2 complet globuli 017 gm/dL ed n 14:42 measure ment (mass/v olume) Serum = 100 74-106 complet or 017 mg/dL ed plasma 14:42 glucose measure ment (mas Serum = 3.9 3.5-5.1 complet potassi 017 mmoL/L ed um 14:42 measure ment Serum = 139 136-145 complet sodium 017 mmoL/L ed measure 14:42 ment Serum = 40 15-37 complet or 017 U/L ed plasma 14:42 asparta te aminotr ansfera ALT = 26 12-78 complet (SGPT) 017 U/L ed ser/juventino 14:42 s Protein = 7.7 6.4-8.2 complet total 017 gm/dL ed ser/juventino 14:42 s Lipase measurement (02-08-2017 14:42) Lipase = 116 73-393 complet measure 017 U/L ed ment 14:42 Cardiac enzymes (02-08-2017 14:42) Serum = 1.5 0-4.0 complet or 017 U/L ed plasma 14:42 creatin e kinase MB (CK-M Serum = 7.1 0.0-3.6 complet or 017 ng/mL ed plasma 14:42 creatin e kinase MB measu Serum = 462 39-308 complet or 017 U/L ed plasma 14:42 creatin e kinase measure m Serum < 0.02 0.00-0. complet or 017 ng/mL 06 ed plasma 14:42 troponi n i.cardi ac measu Ethanol Bld-mCnc (05-22-2013) Ethanol 118 0-99 complet [...] mg/dL 1 ed SerPl-m 23:46 Cnc Prot 05-21-2 7.7 6.4-8.2 complet SerPl-m 014 gm/dL ed Cnc 23:46 Albumin 05-21-2 3.6 3.4-5.0 complet 014 gm/dL ed SerPl-m 23:46 Cnc Globuli 05-21-2 4.1 1.3-3.2 complet n 014 gm/dL ed Ser-mCn 23:46 c Albumin 05-21-2 0.9 UNK 1.1-1.8 complet /Glob 014 ed SerPl-m 23:46 Rto Bilirub 2 0.4 0.2-1.0 complet 014 mg/dL ed SerPl-m 23:46 Cnc AST 05-21-2 11 U/L 15-37 complet SerPl-c 014 ed Cnc 23:46 ALT 05-21- 22 U/L 12-78 complet SerPl-c 014 ed Cnc 23:46 ALP 137 U/L 50-136 complet SerPl-c 014 ed Cnc 23:46 CBC with AUTO DIFF (05-21-2013 23:46) WBC # 05-21-2 12.0 4.8-10. complet Bld 014 K/MM3 8 ed Auto 23:46 RBC # 05-21-2 5.27 4.6-6.2 complet Bld 014 M/mm3 ed Auto 23:46 Hgb 05-21-2 15.5 14.1-18 complet Bld-mCn 014 g/dL .0 ed c 23:46 Hct Fr 2 45.0 % 42.0-52 complet Bld 014 .0 ed 23:46 MCV RBC 2 85.5 fl 82.2-97 complet 014 .8 ed 23:46 MCH RBC 05-21-2 29.5 pg 27-31.2 complet Qn 014 ed Auto 23:46 MEAN 2 34.5 31.8-35 complet CORPUSC 014 g/dl .4 ed ULAR 23:46 HGB CONC RDW RBC 05-21-2 14.8 % 11.5-17 complet Auto 014 .5 ed 23:46 Platele 314 142-424 complet t Bld 014 K/mm3 ed Ql 23:46 Manual MEAN 01-23-2 7.8 fl 7.4-10. complet PLATELE 014 4 ed T 23:46 VOLUME Granulo 05-21-2 63.7 % 37.0-80 complet cytes 014 .0 ed Fr Bld 23:46 Auto LYMPH % 05-21-2 30.9 % 10-50 complet 014 ed 23:46 Monocyt 23-2 3.3 % 1.7-9.3 complet es Fr 014 ed Bld 23:46 Auto Eosinop -23-2 1.6 % 0.1-12. complet hil Fr 014 0 ed Bld 23:46 Auto Basophi 23-2 0.5 % 0.1-2.0 complet ls Fr 014 ed Bld 23:46 Auto Granulo 05-21-2 7.7 1.3-8.0 complet cytes # 014 K/mm3 ed Bld 23:46 Auto Lymphoc 05-21-2 3.7 0.7-4.5 complet ytes Fr 014 K/mm3 ed Bld 23:46 Auto Monocyt 23-2 0.4 0.1-1.0 complet es # 014 K/mm3 ed Bld 23:46 Auto Eosinop 23-2 0.2 0.0-0.4 complet hil # 014 K/mm3 ed Bld 23:46 Auto Basophi 23-2 0.1 0-0.2 complet ls # 014 K/MM3 ed Bld 23:46 Auto URINALYSIS/COMPLETE (05-21-2013 23:42) URINE 05-21-2 YELLOW YELLOW complet COLOR 014 ed 23:42 URINE 05-21-2 CLEAR CLEAR complet APPEARA 014 ed NCE 23:42 URINE 05-21-2 NEGATIV NEG complet GLUCOSE 014 E ed - 23:42 DIPSTIC K URINE 05-21-2 NEGATIV NEG complet BILIRUB 014 E ed IN - 23:42 DIPSTIC K URINE 05-21-2 NEGATIV NEG complet KETONE 014 E mg/dL ed 23:42 URINE 05-21-2 1.010 1.005-1 complet SPECIFI 014 UNK .030 ed C 23:42 GRAVITY URINE 05-21-2 NEGATIV NEG complet BLOOD 014 E ed 23:42 URINE 05-21-2 5.5 UNK 5.0-8.5 complet PH 014 ed 23:42 URINE NEGATIV NEG complet PROTEIN 014 E mg/dL ed - 23:42 DIPSTIC K URINE 0.2 NEG complet UROBILI 014 E.U./dL ed NOGEN - 23:42 DIPSTIC K URINE NEGATIV NEG complet NITRATE 014 E ed - 23:42 DIPSTIC K URINE NEGATIV NEG complet LEUK 014 E ed ESTERAS 23:42 E URINE OCC 0 complet RBC 014 rbc/hpf ed 23:42 URINE OCC O complet WBC 014 wbc/hpf ed 23:42 URINE OCC OCC complet SQUAMOU 014 #/hpf ed S CELLS 23:42 URINE TRACE O complet BACTERI 014 ed A 23:42 Encounters Encounter Start End Date Code Location Performer Type Date Emergency MARCO ANTONIO Larson MD (ER) 4 23:46 4 01:47 [facility]
--- OUTSIDE RECORDS SUMMARY | 2017-02-19 21:20 | External Medical Summary Rpt | CCD ---
Author Author , DEO DESOUZA Address Unknown Phone Care Team Providers Care Applique Cutter Name Role Phone NICHOLAS DRUG, Unavailable Unavailable NICHOLAS DRUG Veronica Larson MD, Unavailable Unavailable Veronica Larson MD Purpose Continuity of Care Document - 07-12-2009 through 2016 Problems Code Diagnosis DOS Provider Status 305.00 305.00 05-22-2013 [place] ALCOHOL [facility] ABUSE-[facility] C 305.1 305.1 05-22-2013 [place] TOBACCO USE [facility] DISORDER [facility] 413.9 413.9 05-22-2013 [place] ANGINA [facility] PECTORIS [facility] NEC/NOS 780.39 780.39 05-22-2013 [place] OTHER [facility] CONVULSIONS [facility] F10.929 ALCOHOL USE, UNSPECIFIED WITH INTOXICATIO N, [...] 017 K/mm3 ed monocyt 14:42 e count [place] % = 5.0 % 1.7-9.3 complet 017 [...] SQUARE METERS Comment: If this patient is -Libyan, then multiply the Comment: result by 1.210. [...] Larson MD (ER) 4 23:46 4 01:47 [facility]
--- OUTSIDE RECORDS SUMMARY | 2017-02-19 21:21 | External Medical Summary Rpt ---
Author Author ALICEJUSTIN [employer], [employer] Organization [employer] Address Unknown Phone Unavailable Results Amylase [Enzymatic activity/volume] in Serum or Plasma Observa Value Referen Units Interpr Notes Date tion ce etation Range Amylase 25 - 115 U/L Normal No Feb 08 [Enzymati informati 2017 2:42 c on in PM activity/ source volume] data in Serum or Plasma Comprehensive metabolic 2000 panel in Serum or Plasma Observa Value Referen Units Interpr Notes Date tion ce etation Range Albumin/G 1.1 - 1.8 No Low No Feb 08 lobulin informati informati 2017 2:42 [Mass on in on in PM ratio] in source source Serum or data data Plasma Albumin 3.4 - 5.0 gm/dL Normal No Feb 08 [Mass/vol informati 2017 2:42 ume] in on in PM Serum or source Plasma data Alkaline 46 - 116 U/L Normal No Feb 08 phosphata informati 2017 2:42 se on in PM [Enzymati source c data activity/ volume] in Serum or Plasma Bilirubin 0.2 - 1.0 mg/dL Normal No Feb 08 .total informati 2016 2:42 [Mass/vol on in PM ume] in source Serum or data Plasma Urea 7 - 18 mg/dL Normal No Feb 08 nitrogen informati 2017 2:42 [Mass/vol on in PM ume] in source Serum or data Plasma Calcium 8.5 - mg/dL Normal No Feb 08 [Mass/vol 10.1 informati 2017 2:42 ume] in on in PM Serum or source Plasma data Chloride 98 - 107 mmoL/L Normal No Feb 08 [Moles/vo informati 2016 2:42 lume] in on in PM Serum or source Plasma data Carbon 21.0 - mmoL/L Normal No Feb 08 dioxide, 32.0 informati 2017 2:42 total on in PM [Moles/vo source lume] in data Serum or Plasma Creatinin 0.70 - mg/dL Normal No Feb 08 e 1.30 informati 2017 2:42 [Mass/vol on in PM ume] in source Serum or data Plasma Creatinin 50 - 200 ML/MIN Normal No Feb 08 e renal informati 2016 2:42 clearance on in PM source predicted data by Cockcroft -Gault formula Estimated >60 ML/MIN No REFERENCE Feb 08 informati RANGE: 2017 2:42 glomerula on in >60 PM r source ML/MIN/1. filtratio data 73 SQUARE n rate METERSIf (GF this patient is -A merican, then multiply theresult by 1.210. Globulin 1.3 - 3.2 gm/dL High No Feb 08 [Mass/vol informati 2016 2:42 ume] in on in PM Serum source data Glucose 74 - 106 mg/dL Normal No Feb 08 [Mass/vol informati 2016 2:42 ume] in on in PM Serum or source Plasma data Potassium 3.5 - 5.1 mmoL/L Normal No Feb 08 inform2016 2:42 [Moles/vo on in PM lume] in source Serum or data Plasma Sodium 136 - 145 mmoL/L Normal No Feb 08 [Moles/vo informati 2016 2:42 lume] in on in PM Serum or source Plasma data Aspartate 15 - 37 U/L High No Feb 08 inform2016 2:42 aminotran on in PM sferase source [Enzymati data c activity/ volume] in Serum or Plasma Alanine 12 - 78 U/L Normal No Feb 08 aminotran inform2016 2:42 sferase on in PM [Enzymati source c data activity/ volume] in Serum or Plasma Protein 6.4 - 8.2 gm/dL Normal No Feb 08 [Mass/vol informati 2016 2:42 ume] in on in PM Serum or source Plasma data Lipase [Enzymatic activity/volume] in Serum or Plasma Observa Value Referen Units Interpr Notes Date tion ce etation Range Lipase 73 - 393 U/L Normal No Feb 08 [Enzymati informati 2016 2:42 c on in PM activity/ source volume] data in Serum or Plasma CBC W Auto Differential panel in Blood Observa Value Referen Units Interpr Notes Date tion ce etation Range Basophils 0 - 0.2 K/MM3 Normal No Feb 08 inform2016 2:42 [#/volume on in PM ] in source Blood by data Automated count Basophils 0.1 - 2.0 % Normal No Feb 08 inform2016 2:42 leukocyte on in PM s in source Blood by data Automated count Eosinophi 0.0 - 0.4 K/mm3 Normal No Feb 08 ls 2016 2:42 [#/volume on in PM ] in source Blood by data Automated count Eosinophi 0.1 - % Normal No Feb 08 ls/100 12.0 inform2016 2:42 leukocyte on in PM s in source Blood by data Automated count Granulocy 1.3 - 8.0 K/mm3 Normal No Feb 08 [place] inform2016 2:42 [#/volume on in PM ] in source Blood by data Automated count Granulocy 37.0 - % Normal No Feb 08 [place]/100 80.0 informati 2016 2:42 leukocyte on in PM s in source Blood by data Automated count Hematocri 42.0 - % Low No Feb 08 t [Volume 52.0 2016 2:42 on in PM Fraction] source of Blood data Hemoglobi 14.1 - g/dL No No Feb 08 n 18.0 informati informati 2016 2:42 [Mass/vol on in on in PM ume] in source source Blood data data Lymphocyt 0.7 - 4.5 K/mm3 Normal No Feb 08 es 2016 2:42 [#/volume on in PM ] in source Unspecifi data ed specimen by Automated count Lymphocyt 10 - 50 % Normal No Feb 08 es 2016 2:42 [#/volume on in PM ] in source Unspecifi data ed specimen by Automated count Erythrocy 27 - 31.2 pg Normal No Feb 08 te mean 2016 2:42 corpuscul on in PM ar source hemoglobi data n [Entitic mass] Erythrocy 31.8 - g/dl Normal No Feb 08 te mean 35.4 2016 2:42 corpuscul on in PM ar source hemoglobi data n concentra tion [Mass/vol ume] by Automated count Erythrocy 82.2 - fl Normal No Feb 08 te mean 97.8 inform2016 2:42 corpuscul on in PM ar volume source [Entitic data volume] by Automated count Monocytes 0.1 - 1.0 K/mm3 Normal No Feb 082016 2:42 [#/volume on in PM ] in source Blood by data Automated count Monocytes 1.7 - 9.3 % Normal No Feb 08 informati 2017 2:42 leukocyte on in PM s in source Blood by data Automated count Platelet 7.4 - fl Normal No Feb 08 mean 10.4 informati 2016 2:42 volume on in PM [Entitic source volume] data in Blood by Automated count Platelets 142 - 424 K/mm3 Normal No Feb 08 informati 2016 2:42 [#/volume on in PM ] in source Blood data Erythrocy 4.6 - 6.2 M/mm3 Normal No Feb 08 [place] informati 2016 2:42 [#/volume on in PM ] in source Amniotic data fluid Erythrocy 11.5 - % Normal No Feb 08 te 17.5 informati 2016 2:42 distribut on in PM ion width source [Entitic data volume] by Automated count Leukocyte 4.8 - K/MM3 Normal No Feb 08 s 10.8 informati 2016 2:42 [#/volume on in PM ] in source Blood data
--- OUTSIDE RECORDS SUMMARY | 2017-02-19 21:21 | External Medical Summary Rpt | CCD ---
Demographics Preferred Language Thai Marital Status Unknown Catholic Affiliation Unknown Race Unknown Ethnic Group Unknown Author Author , DEO DESOUZA Address Unknown Phone Immunization No patient found.
--- OUTSIDE RECORDS SUMMARY | 2017-02-19 21:21 | External Medical Summary Rpt | CCD ---
Demographics Preferred Language Indonesian Marital Status Unknown Anglican Affiliation Unknown Race Unknown Ethnic Group Unknown Author Author , DEO DESOUZA Address Unknown Phone Immunization No patient found.
[2017-02-19 21:29] LABS: HEMOGLOBIN 13.8 g/dL (14.1-18.0); LYMPH # 4.2 K/mm3 (0.7-4.5); LYMPH % 40.4 % (10-50)
--- NOTE | 2017-02-19 22:25 | Emergency Room Report ---
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 STATES HE HAS HAD1 TRAMADOL, 1 NEURONTIN AND A 12 PACK OF BEER. 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 N Clinical Suspician of Infection? N Mental Status: 1 - Regular (Normal Baseline) Sepsis Risk:Low Sepsis Risk Have you (or family members/close friends) recently traveled outside the [place]? N If Yes, where/when: Have you had exposure to infectious disease within the past month? N TB? Other? Specify: Source RN notes reviewed, family, RN/MD Exam Limitations no limitations Comment This is a 56-year-old male patient brought in by ambulance, and followed by family members after he had a witnessed seizure, just half an hour prior to arrival. Patient is known with chronic low back pain, currently attending a pain clinic where he has been prescribed Ultram/tramadol. He is also a heavy drinker, apparently drinking on a daily basis. Family stated that he has been drinking heavily since recently, today going through a 12 packs of beer. 30 advised that the seizure witnessed appears to be generalized, tonic clonic, and he was postictally confused as well. Patient denies him being incontinent or biting his tongue. According to family has been having chest pain off-and-on for the past 2 days. Patient is known with a seizure disorder, however he has quit his Dilantin (family just found out in the emergency room) 3-4 months ago. ALLERGIES Coded Allergies: No Known Drug Allergies (03/29/15) Home Medications Reported Medications GABAPENTIN (Gabapentin) 400 MG PO TID Tramadol Hcl (Tramadol 50MG) 50 MG PO TID History Medical History General CAD? No Angina: Yes OK: No Hypertension? No Hyperlipidemia? No CHF? No DVT? No PE? No COPD? No Asthma? No Anemia? No GERD? No Gastric ulcers? No GI Bleed? No Hernia? No Thyroid Problems? No Hypothyroidism? No CVA? Yes Seizures? Yes Diabetes? No Insulin Dependent: No Insulin Pump: No Home FSBS? No Renal Insuffiency? No End Stage Renal Disease? No UTI? No Stones? No BPH? No GB Disease: Yes Nephritic Syndrome? No Asplenia? No Hepatitis? No Sickle Cell Disease? No Arthritis? No Migraines? No Cataracts? No Glaucoma? No MRSA? No HIV? No TB? No Anxiety? No Depression? No Cancer? No More? No Immunization Hx DT/Tetanus 1-4 YRS Surgical Hx Previous Surgery?Y CHOLECYSTECTOMY Family History Family Hx Diabetes No CAD Yes Hypertension Yes Hyperlipidemia Yes Cancer No TB No Social History Smoking Hx Smoker: Current Every Day Smoker Tobacco: Yes Type Cigarettes Packs/day 1 1/2 - 2 Packs Alcohol Alcohol: No Review of Systems All Other Systems Reviewed and Negative Cardiovascular chest pain Psychiatric/Neurological seizure Physical Exam Vital Signs Vital Signs Date Time Temp Pulse Resp B/P Pulse O2 O2 Flow FiO2 Ox Delivery Rate 02/19 2339 98.2 68 20 119/72 93 02/19 2338 98.2 68 20 119/72 93 02/19 2138 100 20 129/90 94 02/195 20 02/20 2112 98.2 79 20 107/63 94 General Appearance normal appearance, WD/WN, moderate distress, strong alcohol odor in his breath Eye Exam - bilateral eye normal exam, bilateral eye PERRL, bilateral eye EOMI Neck normal inspection, non-tender, supple, full range of motion Respiratory Status Yes: trachea midline, chest symmetrical, non tender chest. No: respiratory distress. Lung Sounds bilateral: normal breath sounds, lungs clear. 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 No Comment 2300 - upon reevaluation patient appears medically stable, in no acute distress, with no further seizure activity. Advised family as well as parent of results obtained, need to immediately discontinue the Ultram, as the main culprit in his seizure episode, as developed today. Additionally patient needs to resume his antiepileptic (Dilantin) immediately. Patient strongly advised to discontinue any alcoholic beverage from this point on. Patient instructed to follow-up with his PCP within 2-3 days noted to have a Dilantin level rechecked. Prescription was written according to patient's recollection of previous dose, 100 mg 3 times per day. Results/Orders Laboratory Tests 02/19/172114: Creatine Kinase 71, CK-MB (CK-2) Rel Index 0.7, CK and CKMB Interp < 0.5, Troponin I < 0.02, Phenytoin 0.2 L 02/19/172114: Sodium 141, Potassium 3.6, Chloride 105, Carbon Dioxide 24, BUN 11, Creatinine 1.0, Estimated Creat Clear 94, Estimated GFR (MDRD) 77, Glucose 108 H, Calcium 8.4 L, Total Bilirubin 0.4, AST 15, ALT 19, Alkaline Phosphatase 102, Total Protein 7.7, Albumin 3.6, Globulin 4.1 H, Albumin/Globulin Ratio 0.9 L, WBC 10.4, RBC 4.68, Hgb 13.8 L, Hct 41.5 L, MCV 88.5, RDW 12.8, Plt Count 274, MPV 8.6, Gran % 53.2, Gran # 5.5, Lymphocytes % 40.4, Monocytes % 3.9, Eosinophils % 1.9, Basophils % 0.5, Lymphocytes # 4.2, Monocytes # 0.4, Eosinophils # 0.2, Basophils # 0.1, PUBS MCHC 33.3, MCH 29.5, Alcohols 194 H Current Medication Orders Sig/Karissa Start time Last Medication Dose Route Stop Time Status Admin Phenytoin Sodium 500 MG ONCE ONE 02/19 2230 DC 02/19 Sodium Chloride 100 ML IV 02/19 Phenytoin Sodium 0 .STK-MED ONE 02/19 2230 DC IV Sodium Chloride 100 ML .STK-MED ONE 02/19 2230 DC IV Ondansetron HCl 4 MG ONCE ONE 02/19 2145 DC 02/19 IV 02/19 Sodium Chloride 1,000 ML .Q1H1M 02/19 2145 DC 02/19 IV 02/19 Sodium Chloride 10 ML PRN PRN 02/19 2145 DCD IV 02/20 2141 Sodium Chloride 1,000 ML .STK-MED ONE 02/19 2142 DC IV Diazepam 10 MG ONCE ONE 02/19 2130 DC 02/19 IV 02/19 Sodium Chloride 10 ML PRN PRN 02/19 2130 DCD IV 02/20 2122 Ondansetron HCl 0 .STK-MED ONE 02/19 2129 DC .ROUTE Diazepam 0 .STK-MED ONE 02/19 2121 DC .ROUTE Orders Procedure Date/time Status PHENYTOIN (DILANTIN) 02/19 2226 Complete ALCOHOL 02/[address] HEAD W/O CONTRAST 02/[address] HEAD REQ 02/19 2127 Complete CHEST-PORTABLE 02/19 2127 Active 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 of ischemic chgs, no ectopy, normal QRS, normal ME, normal EKG, no EKG for comparison, non-spec. ST/Twave chgs, ST elevation, ST depression, LBBB, RBBB, ectopy, abnormal Q waves XRAY/CT/US XRAY/CT/US 1 XRAY chest XR interpretation by reviewed by me Xray Results no infiltrates, normal heart size, normal lung inflation deven XRAY/CT/US [address] interpretation by discussed w/radiologist CT Results normal/NAD, no fracture seen Comment See virtual radiology report Departure Departure Time of Disposition 2323 Disposition DC Home or Self Care(routine) Clinical Impression Primary Impression: Seizure disorder Secondary Impressions: Adverse drug effect Qualifiers: Encounter type: initial encounter Qualified Code: T88.7XXA - Unspecified adverse effect of drug or medicament, initial encounter Alcohol intoxication Qualifiers: Complication of substance-induced condition: with unspecified complication Qualified Code: F10.929 - Alcohol use, unspecified with intoxication, unspecified Medical non-compliance Condition STABLE Referrals ALEJANDRO WALSH: 2 Days-Call Office Patient Instructions DI for Adverse Drug Reaction -- Other, DI for Alcohol Abuse , DI for Seizure Disorder -- Adult Additional Instructions Please discontinue use of tramadol/Ultram immediately. Please stop drinking any alcoholic beverages. Please take (restart) the Dilantin as prescribed. Discharge Counseling Counseled pt/family regarding diagnosis, test results, medications/RX, home care, follow up needs, alcohol counseling,> 3min, tobacco counseling,> 3min Comment Please discontinue use of tramadol/Ultram immediately. Please stop drinking any alcoholic beverages. Please take (restart) the Dilantin as prescribed. Prescriptions Current Visit Scripts PHENYTOIN SODIUM EXTENDED (Dilantin) 100 MG PO TID #90 CER Ref 5 ED Critical Care Critical Care No at [id number]
--- NOTE | 2017-02-19 22:25 | Emergency Room Report ---
History of Present Illness Time Seen by 182 Presenting Problem in Triage Pt arrived:Ambulance Stretcher Presenting Problem:S/P SEIZURE AND C/O CHEST PAION X 2 DAYS. STATES HE HAS HAD1 TRAMADOL, 1 NEURONTIN AND A 12 PACK OF BEER. Onset of symptoms date/time:/ or onset unknown for:MEDICAL HX UNKNOWN Treatment Prior to Arrival: EMS TRANSPORT AND MONITORING WITH IV STICK AND LAB DRAW INSTRUCTIONAL SERVICES LIBRARIAN Provided by:[employer] VICE PRESIDENT Sepsis Risk Assessment: Temp: 98.2 B/P: 129/90 MAP: 77 Pulse: 100 Resp: 20 Recent fever? N Clinical Suspician of Infection? N Mental Status: 1 - Regular (Normal Baseline) Sepsis Risk:Low Sepsis Risk Have you (or family members/close friends) recently traveled outside the [place]? N If Yes, where/when: Have you had exposure to infectious disease within the past month? N TB? Other? Specify: Source RN notes reviewed, family, RN/MD Exam Limitations no limitations Comment This is a 56-year-old male patient brought in by ambulance, and followed by family members after he had a witnessed seizure, just half an hour prior to arrival. Patient is known with chronic low back pain, currently attending a pain clinic where he has been prescribed Ultram/tramadol. He is also a heavy drinker, apparently drinking on a daily basis. Family stated that he has been drinking heavily since recently, today going through a 12 packs of beer. 30 advised that the seizure witnessed appears to be generalized, tonic clonic, and he was postictally confused as well. Patient denies him being incontinent or biting his tongue. According to family has been having chest pain off-and-on for the past 2 days. Patient is known with a seizure disorder, however he has quit his Dilantin (family just found out in the emergency room) 3-4 months ago. ALLERGIES Coded Allergies: No Known Drug Allergies (03/29/15) Home Medications Reported Medications GABAPENTIN (Gabapentin) 400 MG PO TID Tramadol Hcl (Tramadol 50MG) 50 MG PO TID History Medical History General CAD? No Angina: Yes AR: No Hypertension? No Hyperlipidemia? No CHF? No DVT? No PE? No COPD? No Asthma? No Anemia? No GERD? No Gastric ulcers? No GI Bleed? No Hernia? No Thyroid Problems? No Hypothyroidism? No CVA? Yes Seizures? Yes Diabetes? No Insulin Dependent: No Insulin Pump: No Home FSBS? No Renal Insuffiency? No End Stage Renal Disease? No UTI? No Stones? No BPH? No GB Disease: Yes Nephritic Syndrome? No Asplenia? No Hepatitis? No Sickle Cell Disease? No Arthritis? No Migraines? No Cataracts? No Glaucoma? No MRSA? No HIV? No TB? No Anxiety? No Depression? No Cancer? No More? No Immunization Hx DT/Tetanus 1-4 YRS Surgical Hx Previous Surgery?Y CHOLECYSTECTOMY Family History Family Hx Diabetes No CAD Yes Hypertension Yes Hyperlipidemia Yes Cancer No TB No Social History Smoking Hx Smoker: Current Every Day Smoker Tobacco: Yes Type Cigarettes Packs/day 1 1/2 - 2 Packs Alcohol Alcohol: No Review of Systems All Other Systems Reviewed and Negative Cardiovascular chest pain Psychiatric/Neurological seizure Physical Exam Vital Signs Vital Signs Date Time Temp Pulse Resp B/P Pulse O2 O2 Flow FiO2 Ox Delivery Rate 02/19 2339 98.2 68 20 119/72 93 02/19 2338 98.2 68 20 119/72 93 02/19 2138 100 20 129/90 94 02/195 20 02/20 2112 98.2 79 20 107/63 94 General Appearance normal appearance, WD/WN, moderate distress, strong alcohol odor in his breath Eye Exam - bilateral eye normal exam, bilateral eye PERRL, bilateral eye EOMI Neck normal inspection, non-tender, supple, full range of motion Respiratory Status Yes: trachea midline, chest symmetrical, non tender chest. No: respiratory distress. Lung Sounds bilateral: normal breath sounds, lungs clear. 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 No Comment 2300 - upon reevaluation patient appears medically stable, in no acute distress, with no further seizure activity. Advised family as well as parent of results obtained, need to immediately discontinue the Ultram, as the main culprit in his seizure episode, as developed today. Additionally patient needs to resume his antiepileptic (Dilantin) immediately. Patient strongly advised to discontinue any alcoholic beverage from this point on. Patient instructed to follow-up with his PCP within 2-3 days noted to have a Dilantin level rechecked. Prescription was written according to patient's recollection of previous dose, 100 mg 3 times per day. Results/Orders Laboratory Tests 02/19/172114: Creatine Kinase 71, CK-MB (CK-2) Rel Index 0.7, CK and CKMB Interp < 0.5, Troponin I < 0.02, Phenytoin 0.2 L 02/19/172114: Sodium 141, Potassium 3.6, Chloride 105, Carbon Dioxide 24, BUN 11, Creatinine 1.0, Estimated Creat Clear 94, Estimated GFR (MDRD) 77, Glucose 108 H, Calcium 8.4 L, Total Bilirubin 0.4, AST 15, ALT 19, Alkaline Phosphatase 102, Total Protein 7.7, Albumin 3.6, Globulin 4.1 H, Albumin/Globulin Ratio 0.9 L, WBC 10.4, RBC 4.68, Hgb 13.8 L, Hct 41.5 L, MCV 88.5, RDW 12.8, Plt Count 274, MPV 8.6, Gran % 53.2, Gran # 5.5, Lymphocytes % 40.4, Monocytes % 3.9, Eosinophils % 1.9, Basophils % 0.5, Lymphocytes # 4.2, Monocytes # 0.4, Eosinophils # 0.2, Basophils # 0.1, PUBS MCHC 33.3, MCH 29.5, Alcohols 194 H Current Medication Orders Sig/Karissa Start time Last Medication Dose Route Stop Time Status Admin Phenytoin Sodium 500 MG ONCE ONE 02/19 2230 DC 02/19 Sodium Chloride 100 ML IV 02/19 Phenytoin Sodium 0 .STK-MED ONE 02/19 2230 DC IV Sodium Chloride 100 ML .STK-MED ONE 02/19 2230 DC IV Ondansetron HCl 4 MG ONCE ONE 02/19 2145 DC 02/19 IV 02/19 Sodium Chloride 1,000 ML .Q1H1M 02/19 2145 DC 02/19 IV 02/19 Sodium Chloride 10 ML PRN PRN 02/19 2145 DCD IV 02/20 2141 Sodium Chloride 1,000 ML .STK-MED ONE 02/19 2142 DC IV Diazepam 10 MG ONCE ONE 02/19 2130 DC 02/19 IV 02/19 Sodium Chloride 10 ML PRN PRN 02/19 2130 DCD IV 02/20 2122 Ondansetron HCl 0 .STK-MED ONE 02/19 2129 DC .ROUTE Diazepam 0 .STK-MED ONE 02/19 2121 DC .ROUTE Orders Procedure Date/time Status PHENYTOIN (DILANTIN) 02/19 2226 Complete ALCOHOL 02/[address] HEAD W/O CONTRAST 02/[address] HEAD REQ 02/19 2127 Complete CHEST-PORTABLE 02/19 2127 Active SAMPLE DRILLER 02/19 2127 Active URINALYSIS/COMPLETE 02/19 2127 Active DRUG ABUSE SCREEN (10) 02/19 2127 Active CARDIAC ENZYMES 02/19 2127 Complete IV SALINE LOCK 02/19 2123 Active CBC WITH AUTO DIFF 02/19 2123 Complete CHEM 12 PROFILE 02/19 2123 Complete CM/EKG 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 of ischemic chgs, no ectopy, normal QRS, normal SD, normal EKG, no EKG for comparison, non-spec. ST/Twave chgs, ST elevation, ST depression, LBBB, RBBB, ectopy, abnormal Q waves XRAY/CT/US XRAY/CT/US 1 XRAY chest XR interpretation by reviewed by me Xray Results no infiltrates, normal heart size, normal lung inflation deven XRAY/CT/US [address] interpretation by discussed w/radiologist CT Results normal/NAD, no fracture seen Comment See virtual radiology report Departure Departure Time of Disposition 2323 Disposition DC Home or Self Care(routine) Clinical Impression Primary Impression: Seizure disorder Secondary Impressions: Adverse drug effect Qualifiers: Encounter type: initial encounter Qualified Code: T88.7XXA - Unspecified adverse effect of drug or medicament, initial encounter Alcohol intoxication Qualifiers: Complication of substance-induced condition: with unspecified complication Qualified Code: F10.929 - Alcohol use, unspecified with intoxication, unspecified Medical non-compliance Condition STABLE Referrals ALEJANDRO WALSH: 2 Days-Call Office Patient Instructions DI for Adverse Drug Reaction -- Other, DI for Alcohol Abuse , DI for Seizure Disorder -- Adult Additional Instructions Please discontinue use of tramadol/Ultram immediately. Please stop drinking any alcoholic beverages. Please take (restart) the Dilantin as prescribed. Discharge Counseling Counseled pt/family regarding diagnosis, test results, medications/RX, home care, follow up needs, alcohol counseling,> 3min, tobacco counseling,> 3min Comment Please discontinue use of tramadol/Ultram immediately. Please stop drinking any alcoholic beverages. Please take (restart) the Dilantin as prescribed. Prescriptions Current Visit Scripts PHENYTOIN SODIUM EXTENDED (Dilantin) 100 MG PO TID #90 CER Ref 5 ED Critical Care Critical Care No at 1112
[2017-02-19] MEDS ORDERED: DILANTIN100 MG PO (23:29)
[2017-02-19 23:39] VITALS: BP 119/72
--- NOTE | 2017-02-20 07:53 | RADIOLOGY REPORT PS360 ---
CHEST-PORTABLE HISTORY: C/O CHEST PAIN ORDERING PHYSICIAN: Williams Pickett MD PATIENT AGE: 56 years COMPARISON: 03/11/2015 FINDINGS: The cardiomediastinal silhouette and pulmonary vascularity are within normal limits. The lungs are clear without infiltrates, suspicious nodules, or pleural effusions. No acute bony abnormalities. IMPRESSION: No change with no acute finding
--- NOTE | 2017-02-20 08:15 | RADIOLOGY REPORT PS360 ---
CT HEAD W/O CONTRAST HISTORY: Seizure S/P SEIZURE ORDERING PHYSICIAN: Williams Pickett MD PATIENT AGE: 56 years COMPARISON: None TECHNIQUE: Axial images obtained without contrast. Brain and bone windows reviewed. FINDINGS: No midline shift, mass effect, intracranial hemorrhage, hydrocephalus, or extra-axial fluid collection is evident. The calvarium has an unremarkable appearance. No mastoid effusion. Mucosal thickening involves the ethmoid sinuses.. IMPRESSION: No acute intracranial findings.
== END 2017-02-19 23:40 | disposition home or self-care (01) ==
LOC: ER 21:10
PROVIDERS: Emergency Medicine
DX: G40.89 Other seizures (principal); T40.4X5A Adverse effect of other synthetic narcotics, initial encounter; F10.929 Alcohol use, unspecified with intoxication, unspecified; F17.210 Nicotine dependence, cigarettes, uncomplicated; Z88.6 Allergy status to analgesic agent; Z79.899 Other long term (current) drug therapy
CPT/HCPCS: J2405

== ENCOUNTER 2017-04-02 23:04 | Emergency (ER) | payer MEDICARE, MEDICAID ==
[~2017-04-02] VITALS: Ht 188 cm; Wt 81.6 kg
[~2017-04-02 23:04] MED LIST changes: +DILANTIN100 MG PO
--- OUTSIDE RECORDS SUMMARY | 2017-04-02 23:23 | External Medical Summary Rpt | Continuity of Care Document ---
Author Author Organization Address Unknown Phone Unavailable Care Team Providers Care Gleason Operator Name Role Phone , Unavailable Unavailable EMS Current Medications Section EMS Allergies and Adverse Reactions EMS Past Medical History Medications Administered Section EMS Procedures Performed EMS Vital Signs EMS Patient Care Report Narrative D: EC1 dispatched to residence of 56 year old male. Patient was laying on his ride side in the middle of the floor upon arrival, unresponsive. C: 56 year old male with chief complaint of seizure. Relatives stated he appeared to go into convulsions and passed out on the floor. H: Relatives stated he has a history of seizures but has not taken his seizure medication. They stated his seizure lasted a few minutes, but kept "going in and out of seizures". S: Unresponsive state, still convulsing on the right side A: NKA M: Dilantin (has not taken in months), Tramadol, Gabapentin P: Seizures, TIA x 1 year ago, Back pain L: unknown E: Falling on floor having a seizure A: Upon moving patient in to stair chair he became more alert but disoriented. Once in EC unit vitals were obtained showing normotensive values. HR within normal limits, 02sat lower than average at 92%. Placed patient on 2lpm NC. Patient stated the only pain he had was chest pain which he described as being a sharp pain. Patient stated he had been drinking alcohol all day and took his Tramadol and Neurontin. Performed 12 lead which showed Normal Sinus Rhythm. Started 18 yang IV, blood draw, BGL was 125, and hooked to 500 ml of Normal Saline at KVO rate. Performed Zearing Stroke Assessment which showed a minor left sided facial droop, all other tests were negative. Patient went back to an unresponsive state pulling in to [facility], administered 1mg of Narcan via IV. Pupils were less than 2mm. R: Vitals, EKG, IV 18 yang, blood draw, BGL, NS 9%, 02, ALS Assessment, Stroke Assessment, Narcan 1mg via IV push, continued monitoring. T: With assist x4 lifted patient on to stair chair and down the fligt of stairs at his residence. Lifted patient with assist x 4 on to stretcher, secured x5 and loaded in to EC unit. Patient transported to [facility], a few changes enroute with patient responsive level. Transferred patient over to hospital bed with assist x3. Report given to Margaret Pendleton RN. M: Patient required EMS transport due to acute illness of seizure and unresponsive nature. Patient required monitoring and evaluation enroute.
--- OUTSIDE RECORDS SUMMARY | 2017-04-02 23:23 | External Medical Summary Rpt | Continuity of Care Document ---
Author Author Organization Address Unknown Phone Unavailable Care Team Providers Care Model Making Supervisor Name Role Phone , Unavailable Unavailable EMS [...] of Normal Saline at KVO rate. Performed Anthon Stroke Assessment which showed a minor left sided facial droop, all other tests were negative. Patient went back to an unresponsive state pulling in to [facility], administered 1mg of Narcan via IV. Pupils [...] in to EC unit. Patient transported to [facility], a few changes enroute with patient responsive level. Transferred patient over to hospital bed with assist x3. Report given to Margaret Pendleton RN. M: Patient required EMS transport due to acute illness of seizure and unresponsive nature. Patient required monitoring and evaluation enroute.
--- OUTSIDE RECORDS SUMMARY | 2017-04-02 23:25 | External Medical Summary Rpt | CCD ---
Demographics Preferred Language Luxembourger Marital Status Unknown Spiritism Affiliation Unknown Race Unknown Ethnic Group Unknown Author Author , DEO DESOUZA Address Unknown Phone Immunization No patient found.
--- OUTSIDE RECORDS SUMMARY | 2017-04-02 23:25 | External Medical Summary Rpt | CCD ---
Demographics Preferred Language Wallisian Marital Status Unknown Buddhism Affiliation Unknown Race Unknown Ethnic Group Unknown Author Author , DEO DESOUZA Address Unknown Phone Immunization No patient found.
--- OUTSIDE RECORDS SUMMARY | 2017-04-02 23:25 | External Medical Summary Rpt | CCD ---
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 Name Role Phone Veronica Larson MD, Unavailable Unavailable Veronica Larson MD Purpose Continuity of Care Document - 05-21-2013 through 2016 Problems Code Diagnosis DOS Provider Status 305.00 305.00 05-22-2013 [place] ALCOHOL [facility] ABUSE-[facility] C 305.1 305.1 05-22-2013 [place] TOBACCO USE [facility] DISORDER [facility] 413.9 413.9 05-22-2013 [place] ANGINA [facility] PECTORIS [facility] NEC/NOS 780.39 780.39 05-22-2013 [place] OTHER [facility] CONVULSIONS Hospital F10.929 ALCOHOL USE, UNSPECIFIED WITH INTOXICATIO N, UNSPECIFIED G40.909 EPILEPSY, UNSP, NOT INTRACTABLE , WITHOUT STATUS EPILEPTICUS J02.0 STREPTOCOCC AL PHARYNGITIS J40 BRONCHITIS, NOT SPECIFIED ACUTE OR CHRONIC M54.2 CERVICALGIA R13.10 DYSPHAGIA, UNSPECIFIED R56.9 UNSPECIFIED CONVULSIONS 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 9% SO LIZETH TI ON Vital Signs 05-22-2013 01:46 Name Value Interpretat [...] Order Detail nces retati t Range on Serum or plasma phenytoin measurement (m (02-19-2017 21:15) Serum 2 = 0.2 10-20 complet or 017 ug/ml ed plasma 21:15 phenyto in measure ment (m Serum or plasma ethanol measurement (mas (02-19-2017 21:15) Serum 2 = 194 0-99 complet or 017 mg/dL ed plasma 21:15 ethanol measure ment ([facility] Comment: Comment: ANY ALCOHOL > OR = 80 MG/DL IS CONSIDERED LEGALLY Comment: INTOXICATED UNDER [facility] LAW. Cardiac enzymes (02-19-2017 21:15) Serum < 0.02 0.00-0. complet or 017 ng/mL 06 ed plasma 21:15 troponi n i.cardi ac measu Serum = 71 39-308 complet or 017 U/L ed plasma 21:15 creatin e kinase measure m Serum < 0.5 0.0-3.6 complet or 017 ng/mL ed plasma 21:15 creatin e kinase MB measu Serum = 0.7 0-4.0 complet or 017 U/L ed plasma 21:15 creatin e kinase MB (CK-M CBC w auto diff (02-19-2017 21:15) Blood 02-19-2 = 10.4 4.8-10. complet leukocy 017 K/MM3 8 ed kal[place] 21:15 count (number /volume ) Automat = 12.8 11.5-17 complet ed 017 % .5 ed erythro 21:15 cyte distrib ution width Red 10-24-2 = 4.68 4.6-6.2 complet blood 017 M/mm3 ed cell 21:15 count Blood 2 = 274 142-424 complet platele 017 K/mm3 ed t count 21:15 Automat 02-19-2 = 8.6 7.4-10. complet ed 017 fl 4 ed blood 21:15 platele t mean volume [place] % = 3.9 % 1.7-9.3 complet 017 ed 21:15 Absolut 2 = 0.4 0.1-1.0 complet e 017 K/mm3 ed monocyt 21:15 e count Automat = 88.5 82.2-97 complet ed 017 fl .8 ed erythro 21:15 cyte mean corpusc ular v Automat = 33.3 31.8-35 complet ed 017 g/dl .4 ed erythro 21:15 cyte mean corpusc ular h Mean = 29.5 27-31.2 complet corpusc 017 pg ed ular 21:15 hemoglo bin (MCH) determ Lymphoc = 40.4 10-50 complet yte 017 % ed count, 21:15 blood, automat ed Absolut = 4.2 0.7-4.5 complet e 017 K/mm3 ed lymphoc 21:15 yte count Blood = 13.8 14.1-18 complet hemoglo 017 g/dL .0 ed bin 21:15 measure ment (mass/v olum Blood = 41.5 42.0-52 complet hematoc 017 % .0 ed rit 21:15 (volume fractio n) Granulo 2 = 53.2 37.0-80 complet cyte 017 % .0 ed percent 21:15 age Blood 02-19-2 = 5.5 1.3-8.0 complet granulo 017 K/mm3 ed cytes 21:15 automat ed count (numb Automat 2 = 1.9 % 0.1-12. complet ed 017 0 ed blood 21:15 eosinop hils/10 0 leukocy t Automat 2 = 0.2 0.0-0.4 complet ed 017 K/mm3 ed blood 21:15 eosinop hil count Baso % 2 = 0.5 % 0.1-2.0 complet 017 ed 21:15 Automat 02-19-2 = 0.1 0-0.2 complet ed 017 K/MM3 ed blood 21:15 basophi l count (count/ vo Comprehensive metabolic panel (02-19-2017 21:15) Protein 2 = 7.7 6.4-8.2 complet total 017 gm/dL ed ser/juventino 21:15 s ALT 2 = 19 12-78 complet (SGPT) 017 U/L ed ser/juventino 21:15 s Serum 2 = 15 15-37 complet or 017 U/L ed plasma 21:15 asparta te aminotr ansfera Serum = 141 136-145 complet sodium 017 mmoL/L ed measure 21:15 ment Serum = 3.6 3.5-5.1 complet potassi 017 mmoL/L ed um 21:15 measure ment Serum = 108 74-106 complet or 017 mg/dL ed plasma 21:15 glucose measure ment (mas Serum = 4.1 1.3-3.2 complet globuli 017 gm/dL ed n 21:15 measure ment (mass/v olume) Estimat = 77 >60 complet ed 017 ML/MIN ed glomeru 21:15 lar filtrat ion rate (GF Comment: REFERENCE RANGE: >60 ML/MIN/1.73 SQUARE METERS Comment: If this patient is -[place], then multiply the Comment: result by 1.210. Estimat 2 = 94 50-200 complet ion of 017 ML/MIN ed creatin 21:15 ine renal clearan ce Serum 2 = 1.0 0.70-1. complet or 017 mg/dL 30 ed plasma 21:15 creatin ine measure ment ( Carbon 2 = 24 21.0-32 complet dioxide 017 mmoL/L .0 ed 21:15 measure ment Serum 2 = 105 98-107 complet or 017 mmoL/L ed plasma 21:15 chlorid e measure ment (mo Serum 10-24-2 = 8.4 8.5-10. complet or 017 mg/dL 1 ed plasma 21:15 calcium measure ment (mas Serum 2 = 11 7-18 complet or 017 mg/dL ed plasma 21:15 urea nitroge n measure men Serum 2 = 0.4 0.2-1.0 complet or 017 mg/dL ed plasma 21:15 total bilirub in measure m Serum = 102 46-116 complet or 017 U/L ed plasma 21:15 alkalin e phospha tase [place] Serum 2 = 3.6 3.4-5.0 complet or 017 gm/dL ed plasma 21:15 albumin measure ment (mas Serum 2 = 0.9 1.1-1.8 complet or 017 ed plasma 21:15 albumin /globul in mass ra Lipase measurement (02-08-2017 14:42) Lipase = 116 73-393 complet measure 017 U/L ed ment 14:42 Comprehensive metabolic panel (02-08-2017 14:42) Protein = 7.7 6.4-8.2 complet total 017 gm/dL ed ser/juventino 14:42 s ALT = 26 12-78 complet (SGPT) 017 U/L ed ser/juventino 14:42 s Serum = 40 15-37 complet or 017 U/L ed plasma 14:42 asparta te aminotr ansfera Serum = 139 136-145 complet sodium 017 mmoL/L ed measure 14:42 ment Serum = 3.9 3.5-5.1 complet potassi 017 mmoL/L ed um 14:42 measure ment Serum = 100 74-106 complet or 017 mg/dL ed plasma 14:42 glucose measure ment (mas Serum = 4.0 1.3-3.2 complet globuli 017 gm/dL ed n 14:42 measure ment (mass/v olume) Estimat = 77 >60 complet ed 017 ML/MIN ed glomeru 14:42 lar filtrat ion rate (GF Comment: REFERENCE RANGE: >60 ML/MIN/1.73 SQUARE METERS Comment: If this patient is -[place], then multiply the Comment: result by 1.210. Estimat = 94 50-200 complet ion of 017 ML/MIN ed creatin 14:42 ine renal clearan ce Serum = 1.0 0.70-1. complet or 017 mg/dL 30 ed plasma 14:42 creatin ine measure ment ( Carbon = 30 21.0-32 complet dioxide 017 mmoL/L .0 ed 14:42 measure ment Serum = 105 98-107 complet or 017 mmoL/L ed plasma 14:42 chlorid e measure ment (mo Serum = 9.0 8.5-10. complet or 017 mg/dL 1 ed plasma 14:42 calcium measure ment (mas Serum = 15 7-18 complet or 017 mg/dL ed plasma 14:42 urea nitroge n measure men Serum = 0.9 0.2-1.0 complet or 017 mg/dL ed plasma 14:42 total bilirub in measure m Serum = 113 46-116 complet or 017 U/L ed plasma 14:42 alkalin e phospha tase [place] Serum = 3.7 3.4-5.0 complet or 017 gm/dL ed plasma 14:42 albumin measure ment (mas Serum = 0.9 1.1-1.8 complet or 017 ed plasma 14:42 albumin /globul in mass ra Amylase ser/plas (02-08-2017 14:42) Amylase = 46 25-115 complet 017 U/L ed ser/juventino 14:42 s CBC w auto diff (02-08-2017 14:42) Blood = 9.9 4.8-10. complet leukocy 017 K/MM3 8 ed [place] 14:42 count (number /volume ) Automat = 13.0 11.5-17 complet ed 017 % .5 ed erythro 14:42 cyte distrib ution width Red = 4.72 4.6-6.2 complet blood 017 M/mm3 ed cell 14:42 count Blood = 250 142-424 complet platele 017 K/mm3 ed t count 14:42 Automat = 8.4 7.4-10. complet ed 017 fl 4 ed blood 14:42 platele t mean volume [place] % = 5.0 % 1.7-9.3 complet 017 ed 14:42 Absolut = 0.5 0.1-1.0 complet e 017 K/mm3 ed monocyt 14:42 e count Automat = 88.5 82.2-97 complet ed 017 fl .8 ed erythro 14:42 cyte mean corpusc ular v Automat = 33.9 31.8-35 complet ed 017 g/dl .4 ed erythro 14:42 cyte mean corpusc ular h Mean = 29.9 27-31.2 complet corpusc 017 pg ed ular 14:42 hemoglo bin (MCH) determ Lymphoc = 30.7 10-50 complet yte 017 % ed count, 14:42 blood, automat ed Absolut = 3.0 0.7-4.5 complet e 017 K/mm3 ed lymphoc 14:42 yte count Blood = 14.1 14.1-18 complet hemoglo 017 g/dL .0 ed bin 14:42 measure ment (mass/v olum Blood = 41.7 42.0-52 complet hematoc 017 % .0 ed rit 14:42 (volume fractio n) Granulo = 63.2 37.0-80 complet cyte 017 % .0 ed percent 14:42 age Blood = 6.3 1.3-8.0 complet granulo 017 K/mm3 ed cytes 14:42 automat ed count (numb Automat = 0.7 % 0.1-12. complet ed 017 0 ed blood 14:42 eosinop hils/10 0 leukocy t Automat = 0.1 0.0-0.4 complet ed 017 K/mm3 ed blood 14:42 eosinop hil count Baso % = 0.4 % 0.1-2.0 complet 017 ed 14:42 Automat = 0.0 0-0.2 complet ed 017 K/MM3 ed blood 14:42 basophi l count (count/ vo Cardiac enzymes (02-08-2017 14:42) Serum < 0.02 0.00-0. complet or 017 ng/mL 06 ed plasma 14:42 troponi n i.cardi ac measu Serum = 462 39-308 complet or 017 U/L ed plasma 14:42 creatin e kinase measure m Serum = 7.1 0.0-3.6 complet or 017 ng/mL ed plasma 14:42 creatin e kinase MB measu Serum = 1.5 0-4.0 complet or 017 U/L ed plasma 14:42 creatin e kinase MB (CK-M Ethanol d-nc (05-22-2013) Ethanol 118 0-99 complet 014 mg/dL ed d-n c COMPREHENSIVE METABOLIC PANEL (05-21-2013 23:46) Glucose 122 74-106 complet 014 mg/dL ed d-n 23:46 c BUN 10 7-18 complet Bld-n 014 mg/dL ed c 23:46 Creat 1.1 [...] 014 gm/dL ed Ser-mCn 23:46 c Albumin 2 0.9 UNK 1.1-1.8 complet /Glob 014 ed SerPl-m 23:46 Rto Bilirub 05-21-2 0.4 0.2-1.0 complet 014 mg/dL ed SerPl-m 23:46 Cnc AST 2 11 U/L 15-37 complet SerPl-c 014 ed Cnc 23:46 ALT 22 U/L 12-78 complet SerPl-c 014 ed [...] Bld 014 .0 ed 23:46 MCV RBC 05-21-2 85.5 fl 82.2-97 complet 014 .8 ed 23:46 MCH RBC 05-21-2 29.5 pg 27-31.2 complet Qn 014 ed Auto 23:46 MEAN 2 34.5 31.8-35 complet CORPUSC 014 g/dl .4 ed ULAR 23:46 HGB CONC RDW RBC 05-21-2 14.8 % 11.5-17 complet Auto 014 .5 ed 23:46 Platele 05-21-2 314 142-424 complet t Bld 014 K/mm3 ed Ql 23:46 Manual MEAN 05-21-2 7.8 fl 7.4-10. complet PLATELE 014 4 ed T 23:46 VOLUME Granulo 05-21-2 63.7 % 37.0-80 complet cytes 014 .0 ed Fr Bld 23:46 Auto LYMPH % -23-2 30.9 % 10-50 complet 014 ed 23:46 Monocyt -23-2 3.3 % 1.7-9.3 complet es Fr 014 ed Bld 23:46 Auto Eosinop -23-2 1.6 % 0.1-12. complet hil Fr 014 0 ed Bld 23:46 Auto Basophi -23-2 0.5 % 0.1-2.0 complet ls Fr 014 ed Bld 23:46 Auto Granulo --2 7.7 1.3-8.0 complet cytes # 014 K/mm3 ed Bld 23:46 Auto Lymphoc 23-2 3.7 0.7-4.5 complet ytes Fr 014 K/mm3 ed Bld 23:46 Auto Monocyt -23-2 0.4 0.1-1.0 complet es # 014 K/mm3 [...] 5.0-8.5 complet PH 014 ed 23:42 URINE 05-21-2 NEGATIV NEG complet PROTEIN 014 E mg/dL [...] MD (ER) 4 23:46 4 01:47 [facility]
--- OUTSIDE RECORDS SUMMARY | 2017-04-02 23:25 | External Medical Summary Rpt | CCD ---
Author Author , DEO DESOUZA Address Unknown Phone Care Team Providers Care Lingo Cleaner Name Role Phone Veronica Larson MD, Unavailable Unavailable Veronica Larson MD Purpose Continuity of Care Document - 05-21-2013 through 2016 Problems Code Diagnosis DOS Provider Status 305.00 305.00 05-22-2013 [place] ALCOHOL [facility] ABUSE[facility] C 305.1 305.1 05-22-2013 [place] TOBACCO USE [facility] DISORDER [facility] 413.9 413.9 05-22-2013 [place] ANGINA [facility] PECTORIS [facility] NEC/NOS 780.39 780.39 05-22-2013 [place] OTHER [facility] CONVULSIONS Hospital F10.929 ALCOHOL USE, UNSPECIFIED WITH [...] mg/dL ed plasma 21:15 ethanol measure ment ([facility] Comment: Comment: ANY ALCOHOL > OR = 80 MG/DL IS CONSIDERED LEGALLY Comment: INTOXICATED UNDER [facility] LAW. Cardiac enzymes (02-19-2017 21:15) Serum [...] blood 21:15 platele t mean volume [place] % = 3.9 % 1.7-9.3 complet 017 [...] SQUARE METERS Comment: If this patient is -[place], then multiply the Comment: result by 1.210. [...] SQUARE METERS Comment: If this patient is -[place], then multiply the Comment: result by 1.210. [...] blood 14:42 platele t mean volume [place] % = 5.0 % 1.7-9.3 complet 017 [...] Larson MD (ER) 4 23:46 4 01:47 [facility]
--- OUTSIDE RECORDS SUMMARY | 2017-04-02 23:25 | External Medical Summary Rpt | CCD ---
Author Author [employer] Organization [employer] Address Unknown Phone Unavailable Purpose Continuity of Care Document - through 2016
--- OUTSIDE RECORDS SUMMARY | 2017-04-02 23:26 | External Medical Summary Rpt ---
Author Author [employer], [employer] Organization [employer] Address Unknown Phone Unavailable Results Phenytoin [Mass/volume] in Serum or Plasma Observa Value Referen Units Interpr Notes Date tion ce etation Range Phenytoin 10 - 20 ug/ml Low No Feb 19 informati 2016 9:15 [Mass/vol on in PM ume] in source Serum or data Plasma Ethanol [Mass/volume] in Serum or Plasma Observa Value Referen Units Interpr Notes Date tion ce etation Range Ethanol 0 - 99 mg/dL High ANY Feb 19 [Mass/vol ALCOHOL > 2017 9:15 ume] in OR = 80 PM Serum or MG/DL IS Plasma CONSIDERE D LEGALLYIN TOXICATED UNDER [facility] LAW. CBC W Auto Differential panel in Blood Observa Value Referen Units Interpr Notes Date tion ce etation Range Basophils 0 - 0.2 K/MM3 Normal No Feb 19 informati 2016 9:15 [#/volume on in PM ] in source Blood by data Automated count Basophils 0.1 - 2.0 % Normal No Feb 19 / informati 2016 9:15 leukocyte on in PM s in source Blood by data Automated count Eosinophi 0.0 - 0.4 K/mm3 Normal No Feb 19 ls informati 2016 9:15 [#/volume on in PM ] in source Blood by data Automated count Eosinophi 0.1 - % Normal No Feb 19 ls/100 12.0 informati 2016 9:15 leukocyte on in PM s in source Blood by data Automated count Granulocy 1.3 - 8.0 K/mm3 Normal No Feb 19 kalina informati 2016 9:15 [#/volume on in PM ] in source Blood by data Automated count Granulocy 37.0 - % Normal No Feb 19 [place]/100 80.0 informati 2016 9:15 leukocyte on in PM s in source Blood by data Automated count Hematocri 42.0 - % Low No Feb 19 t [Volume 52.0 informati 2016 9:15 on in PM Fraction] source of Blood data Hemoglobi 14.1 - g/dL Low No Feb 19 n 18.0 informati 2017 9:15 [Mass/vol on in PM ume] in source Blood data Lymphocyt 0.7 - 4.5 K/mm3 Normal No Feb 19 es informati 2016 9:15 [#/volume on in PM ] in source Unspecifi data ed specimen by Automated count Lymphocyt 10 - 50 % Normal No Feb 19 es informati 2016 9:15 [#/volume on in PM ] in source Unspecifi data ed specimen by Automated count Erythrocy 27 - 31.2 pg Normal No Feb 19 te mean informati 2016 9:15 corpuscul on in PM ar source hemoglobi data n [Entitic mass] Erythrocy 31.8 - g/dl Normal No Feb 19 te mean 35.4 informati 2016 9:15 corpuscul on in PM ar source hemoglobi data n concentra tion [Mass/vol ume] by Automated count Erythrocy 82.2 - fl Normal No Feb 19 te mean 97.8 informati 2016 9:15 corpuscul on in PM ar volume source [Entitic data volume] by Automated count Monocytes 0.1 - 1.0 K/mm3 Normal No Feb 19 informati 2017 9:15 [#/volume on in PM ] in source Blood by data Automated count Monocytes 1.7 - 9.3 % Normal No Jan 24 /100 informati 2017 9:15 leukocyte on in PM s in source Blood by data Automated count Platelet 7.4 - fl Normal No Feb 19 mean 10.4 informati 2016 9:15 volume on in PM [Entitic source volume] data in Blood by Automated count Platelets 142 - 424 K/mm3 Normal No Feb 19 informati 2016 9:15 [#/volume on in PM ] in source Blood data Erythrocy 4.6 - 6.2 M/mm3 Normal No Jan 24 [place] informati 2016 9:15 [#/volume on in PM ] in source Amniotic data fluid Erythrocy 11.5 - % Normal No Feb 19 te 17.5 informati 2016 9:15 distribut on in PM ion width source [Entitic data volume] by Automated count Leukocyte 4.8 - K/MM3 Normal No Jan 24 s 10.8 informati 2016 9:15 [#/volume on in PM ] in source Blood data Comprehensive metabolic 2000 panel in Serum or Plasma Observa Value Referen Units Interpr Notes Date tion ce etation Range Albumin/G 1.1 - 1.8 No Low No Oct 24 lobulin informati informati 2017 9:15 [Mass on in on in PM ratio] in source source Serum or data data Plasma Albumin 3.4 - 5.0 gm/dL Normal No Oct 24 [Mass/vol informati 2017 9:15 ume] in on in PM Serum or source Plasma data Alkaline 46 - 116 U/L Normal No Jan 24 phosphata informati 2017 9:15 se on in PM [Enzymati source c data activity/ volume] in Serum or Plasma Bilirubin 0.2 - 1.0 mg/dL Normal No Jan 24 .total informati 2017 9:15 [Mass/vol on in PM ume] in source Serum or data Plasma Urea 7 - 18 mg/dL Normal No Jan 24 nitrogen informati 2017 9:15 [Mass/vol on in PM ume] in source Serum or data Plasma Calcium 8.5 - mg/dL Low No Jan 24 [Mass/vol 10.1 informati 2017 9:15 ume] in on in PM Serum or source Plasma data Chloride 98 - 107 mmoL/L Normal No Jan 24 [Moles/vo informati 2017 9:15 lume] in on in PM Serum or source Plasma data Carbon 21.0 - mmoL/L Normal No Jan 24 dioxide, 32.0 informati 2017 9:15 total on in PM [Moles/vo source lume] in data Serum or Plasma Creatinin 0.70 - mg/dL Normal No Oct 24 e 1.30 informati 2016 9:15 [Mass/vol on in PM ume] in source Serum or data Plasma Creatinin 50 - 200 ML/MIN Normal No Oct 24 e renal informati 2016 9:15 clearance on in PM source predicted data by Cockcroft -Gault formula Estimated >60 ML/MIN No REFERENCE Oct 24 informati RANGE: 2017 9:15 glomerula on in >60 PM r source ML/MIN/1. filtratio data 73 SQUARE n rate METERSIf (GF this patient is -[place], then multiply theresult by 1.210. Globulin 1.3 - 3.2 gm/dL High No Oct 24 [Mass/vol informati 2017 9:15 ume] in on in PM Serum source data Glucose 74 - 106 mg/dL High No Oct 24 [Mass/vol informati 2016 9:15 ume] in on in PM Serum or source Plasma data Potassium 3.5 - 5.1 mmoL/L Normal No Feb 19 inform2016 9:15 [Moles/vo on in PM lume] in source Serum or data Plasma Sodium 136 - 145 mmoL/L Normal No Feb 19 [Moles/vo informati 2016 9:15 lume] in on in PM Serum or source Plasma data Aspartate 15 - 37 U/L Normal No Feb 19 inform2016 9:15 aminotran on in PM sferase source [Enzymati data c activity/ volume] in Serum or Plasma Alanine 12 - 78 U/L Normal No Feb 19 aminotran informati 2016 9:15 sferase on in PM [Enzymati source c data activity/ volume] in Serum or Plasma Protein 6.4 - 8.2 gm/dL Normal No Feb 19 [Mass/vol informati 2016 9:15 ume] in on in PM Serum or source Plasma data Amylase [Enzymatic activity/volume] in Serum or Plasma [...] Low No Feb 08 lobulin informati informati 2016 2:42 [Mass on in on in PM ratio] in source source Serum or data data Plasma Albumin 3.4 - 5.0 gm/dL Normal No Feb 08 [Mass/vol informati 2016 2:42 ume] in on in PM Serum or source Plasma data Alkaline 46 - 116 U/L Normal No Feb 08 phosphata informati 2016 2:42 se on in PM [Enzymati source c data activity/ volume] in Serum or Plasma Bilirubin 0.2 - 1.0 mg/dL Normal No Feb 08 .total informati 2017 2:42 [Mass/vol on in PM ume] in source Serum or data Plasma Urea 7 - 18 mg/dL Normal No Feb 08 nitrogen informati 2017 2:42 [Mass/vol on in PM ume] in source Serum or data Plasma Calcium 8.5 - mg/dL Normal No Feb 08 [Mass/vol 10.1 informati 2016 2:42 ume] in on in PM Serum or source Plasma data Chloride 98 - 107 mmoL/L Normal No Feb 08 [Moles/vo informati 2016 2:42 lume] in on in PM Serum or source Plasma data Carbon 21.0 - mmoL/L Normal No Feb 08 dioxide, 32.0 informati 2016 2:42 total on in PM [Moles/vo source lume] in data Serum or Plasma Creatinin 0.70 - mg/dL Normal No Feb 08 e 1.30 informati 2016 2:42 [Mass/vol on in PM [...] - 37 U/L High No Feb 08 informati 2016 2:42 aminotran on in PM sferase source [...] 393 U/L Normal No Feb 08 [Enzymati ati 2016 2:42 c on in PM activity/ [...] - 2.0 % Normal No Feb 08 /100 informati 2016 2:42 leukocyte on in PM s in source Blood by data Automated count Eosinophi 0.0 - 0.4 K/mm3 Normal No Feb 08 ls informati 2016 2:42 [#/volume on in PM ] in source Blood by data Automated count Eosinophi 0.1 - % Normal No Feb 08 ls/100 12.0 informati 2016 2:42 leukocyte on in PM [...] 4.5 K/mm3 Normal No Feb 08 es informati 2016 2:42 [#/volume on in PM ] in source Unspecifi data ed specimen by Automated count Lymphocyt 10 - 50 % Normal No Feb 08 es 2016 2:42 [#/volume on in PM ] in source Unspecifi data ed specimen by Automated count Erythrocy 27 - 31.2 pg Normal No Feb 08 te mean informati 2016 2:42 corpuscul on in PM ar source hemoglobi data n [Entitic mass] Erythrocy 31.8 - g/dl Normal No Feb 08 te mean 35.4 informati 2016 2:42 corpuscul on in PM ar source hemoglobi data n concentra tion [Mass/vol ume] by Automated count Erythrocy 82.2 - fl Normal No Feb 08 te mean 97.8 informati 2016 2:42 corpuscul on in PM ar volume source [Entitic data volume] by Automated count Monocytes 0.1 - 1.0 K/mm3 Normal No Feb 08 informati 2016 2:42 [#/volume on in PM ] in source Blood by data Automated count Monocytes 1.7 - 9.3 % Normal No Feb 08 /100 informati 2016 2:42 leukocyte on in PM [...]
--- OUTSIDE RECORDS SUMMARY | 2017-04-02 23:26 | External Medical Summary Rpt ---
[...] IS Plasma CONSIDERE D LEGALLYIN TOXICATED UNDER [facility] LAW. CBC W Auto Differential panel in [...]
[2017-04-02 23:30] LABS: HEMOGLOBIN 13.4 g/dL (14.1-18.0); LYMPH # 3.4 K/mm3 (0.7-4.5); LYMPH % 31.9 % (10-50)
--- NOTE | 2017-04-03 00:59 | Emergency Room Report ---
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 UPON ARRIVAL EMS REPORTS PT LAYING T THERE SHAKING THEY SAID HIS NAME AND HE REPSONDED. 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 N Clinical Suspician of Infection? N Mental Status: 1 - Regular (Normal Baseline) Sepsis Risk:Low Sepsis Risk Have you (or family members/close friends) recently traveled outside the [place]? N If Yes, where/when: Have you had exposure to infectious disease within the past month? N TB? Other? Specify: Source patient, RN notes reviewed, old records Exam Limitations no limitations Comment pt with reported seizure disorder and has been compliant with meds - pt reports using etoh tonight-pt was responsive with ems- Cardiac Chest Pain Chest pain indicative of cardiac No Timing/Duration this evening Severity moderate ALLERGIES Coded Allergies: No Known Drug Allergies (03/29/15) Home Medications Active Scripts PHENYTOIN SODIUM EXTENDED (Dilantin) 100 MG PO TID #90 CER Ref 5 Prov: 02/19/17 Reported Medications GABAPENTIN (Gabapentin) 400 MG PO TID Tramadol Hcl (Tramadol 50MG) 50 MG PO TID History Medical History General CAD? No Angina: Yes [place]: No Hypertension? No Hyperlipidemia? No CHF? No DVT? No PE? No COPD? No Asthma? No Anemia? No GERD? No Gastric ulcers? No GI Bleed? No Hernia? No Thyroid Problems? No Hypothyroidism? No CVA? Yes Seizures? Yes Diabetes? No Insulin Dependent: No Insulin Pump: No Home FSBS? No Renal Insuffiency? No End Stage Renal Disease? No UTI? No Stones? No BPH? No GB Disease: Yes Nephritic Syndrome? No Asplenia? No Hepatitis? No Sickle Cell Disease? No Arthritis? No Migraines? No Cataracts? No Glaucoma? No MRSA? No HIV? No TB? No Anxiety? No Depression? No Cancer? No More? No Immunization Hx DT/Tetanus 1-4 YRS Surgical Hx Previous Surgery?Y CHOLECYSTECTOMY Family History Family Hx Diabetes No CAD Yes Hypertension Yes Hyperlipidemia Yes Cancer No TB No Social History Smoking Hx Smoker: Current Every Day Smoker Tobacco: Yes Type Cigarettes Packs/day 1 1/2 - 2 Packs Alcohol Alcohol: Yes Drugs none Review of Systems All Other Systems Reviewed and Negative Constitutional denies fever Eyes denies drainage ENT denies: ear pain, epistaxis, throat pain. Respiratory denies cough, denies shortness of breath, denies wheezing Cardiovascular denies chest pain, denies palpitations, denies syncope Gastrointestinal denies abdominal pain, denies diarrhea, denies vomiting Genitourinary denies: dysuria, frequency, hesitancy, hematuria. Musculoskeletal denies back pain, denies joint pain, denies joint swelling, denies neck pain Skin denies rash Psychiatric/Neurological see HPI, denies headache, seizure Physical Exam Vital Signs Vital Signs Date Time Temp Pulse Resp B/P Pulse O2 O2 Flow FiO2 Ox Delivery Rate 04/03 0010 76 16 93/60 90 /05 2306 98.4 76 16 133/69 95 - WBC >12,000 or <4,000 or 10% bands? 2 or more SIRS Criteria Met? B/P:99/61 MAP:90 Creatinine >2.0? UA output<0.5ml/kg/hr for 2 hrs? Platelet count >100,000? Lactate >2.0mmol/1? INR >1.2 or PTT > than 60 sec? Evidence of Organ Dysfunction? Provider documented clinical suspician of infection? N Sepsis Criteria Count: 0 Sepsis Risk: Low Sepsis Risk General Appearance no apparent distress Eye Exam - bilateral eye PERRL, bilateral eye EOMI Ear, Nose, Throat normal ENT inspection Neck supple Respiratory Status No: respiratory distress. Lung Sounds bilateral: lungs clear. 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 No Results/Orders Laboratory Tests 12/05/17 2325: Sodium 140, Potassium 3.4 L, Chloride 103, Carbon Dioxide 27, BUN 9, Creatinine 0.9, Estimated Creat Clear 105, Estimated GFR (MDRD) 87, Glucose 92, Calcium 8.8 , Total Bilirubin 0.6, AST 28, ALT 23, Alkaline Phosphatase 103, Total Protein 7.1, Albumin 3.5, Globulin 3.6 H, Albumin/Globulin Ratio 1.0 L, WBC 10.8, RBC 4.54 L, Hgb 13.4 L, Hct 39.6 L, MCV 87.2, RDW 12.8, Plt Count 239, MPV 8.3, Gran % 59.4, Gran # 6.4, Lymphocytes % 31.9, Monocytes % 6.4, Eosinophils % 1.6, Basophils % 0.6, Lymphocytes # 3.4, Monocytes # 0.7, Eosinophils # 0.2, Basophils # 0.1, PUBS MCHC 33.9, MCH 29.6, Phenytoin 1.3 L, Alcohols 158 H Current Medication Orders Sig/Karissa Start time Last Medication Dose Route Stop Time Status Admin Sodium Chloride 50 ML .STK-MED ONE 04/03 102 DC IV Phenytoin Sodium 1,000 MG ONCE ONE 04/03 100 AC Sodium Chloride 100 ML IV 04/03 0123 Phenytoin Sodium 0 .STK-MED ONE 04/03 0059 DC IV Sodium Chloride 10 ML PRN PRN 04/02 2315 AC IV 04/03 2310 Sodium Chloride 1,000 ML .Q1H1M 04/02 2315 DC 04/02 IV 04/035 232 Sodium Chloride 10 ML PRN PRN 04/02 2315 AC IV 04/03 2310 Sodium Chloride 1,000 ML .STK-MED ONE 04/02 2312 DC IV Orders Procedure Date/time Status DIET-NOTHING BY MOUTH 04/[address] HEAD W/O CONTRAST 04/[address] HEAD REQ 04/02 2310 Complete IV SALINE LOCK 04/02 2310 Active PHENYTOIN (DILANTIN) 04/02 2310 Complete CBC WITH AUTO DIFF 04/02 2310 Complete CHEM 12 PROFILE 04/02 2310 Complete ALCOHOL 04/02 2310 Complete XRAY/CT/US XRAY/CT/US CT head CT interpretation by discussed w/radiologist Time results known: 0121 CT Results normal/NAD Departure Departure Time of Disposition 0106 Disposition DC Home or Self Care(routine) Clinical Impression Primary Impression: Seizure Secondary Impressions: Alcohol intoxication Qualifiers: Complication of substance-induced condition: uncomplicated Qualified Code: F10.920 - Alcohol use, unspecified with intoxication, uncomplicated Seizure disorder Condition STABLE Referrals NO REFERRAL (PCP) Patient Instructions DI for Seizure Disorder -- Adult Additional Instructions no driving till seen by pcp or neuro - this was told to pt Discharge Counseling Counseled pt/family regarding diagnosis, test results, medications/RX, follow up needs ED Critical Care Critical Care No at 0128
[2017-04-03 02:03] VITALS: BP 110/70
--- NOTE | 2017-04-03 05:27 | RADIOLOGY REPORT PS360 ---
CT HEAD W/O CONTRAST HISTORY: SEIZURE ORDERING PHYSICIAN: Veronica Larson MD PATIENT AGE: 56 years COMPARISON: 02/19/2017 TECHNIQUE: Axial images obtained without contrast. Brain and bone windows reviewed. FINDINGS: No midline shift, mass effect, intracranial hemorrhage, hydrocephalus, or extra-axial fluid collection is evident. The calvarium has an unremarkable appearance. No mastoid effusion. Mild mucosal thickening of the sinuses and minimal opacification of left mastoid air cells. IMPRESSION: No acute intracranial findings. Mild ethmoid and left mastoid sinus disease
== END 2017-04-03 02:03 | disposition home or self-care (01) ==
LOC: ER 23:04
PROVIDERS: Emergency Medicine
DX: F10.920 Alcohol use, unspecified with intoxication, uncomplicated (principal); R56.9 Unspecified convulsions; F17.210 Nicotine dependence, cigarettes, uncomplicated; F10.10 Alcohol abuse, uncomplicated